=== PATIENT | female | born 1980 | race Two or more races ===

== ENCOUNTER → 2020-02-29 11:19 | Outpatient (BNVA) | payer MEDICAID, SELFPAY | PROVIDERS: Visit Provider Internal Medicine Gastroenterology | DX: K21.00 Gastro-esophageal reflux disease with esophagitis, without bleeding (principal); K59.09 Other constipation; D50.0 Iron deficiency anemia secondary to blood loss (chronic); N92.0 Excessive and frequent menstruation with regular cycle; E66.9 Obesity, unspecified; E53.8 Deficiency of other specified B group vitamins; Z79.899 Other long term (current) drug therapy | CPT/HCPCS: 99213 ==

== ENCOUNTER 2020-06-17 11:02 | Outpatient (REF) | payer MEDICAID, SELFPAY ==
--- NOTE | 2020-06-17 | MM_ITS ---
EXAMINATION: MM SCREENING DIGITAL BREAST TOMOSYNTHESIS, BILATERAL CLINICAL INFORMATION: Screening. Asymptomatic. No prior breast imaging. Age 39. No known family history breast cancer. The lifetime risk of breast cancer based on the Tyrer-Cuzick Model is 4%. COMPARISON: None (current study represents initial baseline exam). TECHNIQUE: Digital breast tomosynthesis is performed in both the craniocaudal and mediolateral oblique views along with computer-aided detection (CAD). Synthesized 2D images are generated from the tomosynthesis. FINDINGS: There are scattered areas of fibroglandular density (ACR BI-RADS breast composition Category b). There are no significant masses, abnormal calcifications, or other abnormalities. The axilla and skin contours are unremarkable. MM/MM tomosynthesis screening BI IMPRESSION: No mammographic evidence of malignancy. ASSESSMENT: BI-RADS 1: Negative RECOMMENDATION: Routine annual mammography screening. This patient's information was entered into a reminder system with a target due date for their next mammogram.
== END 2020-06-17 11:03 | disposition home or self-care (01) ==
LOC: HO.MAMMO 11:02
PROVIDERS: PCP Family Medicine; Visit Provider Family Medicine
DX: Z12.31 Encounter for screening mammogram for malignant neoplasm of breast (principal)
CPT/HCPCS: 77063; 77067

== ENCOUNTER → 2020-08-29 10:25 | Outpatient (BNVA) | payer MEDICAID, SELFPAY | PROVIDERS: PCP Family Medicine; Visit Provider Internal Medicine Gastroenterology ==

== ENCOUNTER 2021-03-08 08:06 | Outpatient (REF) | payer MEDICAID, SELFPAY ==
[2021-03-08 08:18] LABS: MANUAL DIFF FLAG NO
[2021-03-08 08:25] LABS: Basophils Percent Auto 0.7 % (0-2); Eosinophils Percent Auto 0.5 % (0-4); Hematocrit 35.5 % (37-47); Hemoglobin 11.6 g/dl (12.0-16.0); Imm Gran Abs Auto 0.01 X10*3/uL (0.00-0.03); Imm Gran Pct Auto 0.2 % (0.0-0.4); Lymphocytes Absolute Auto 1.9 X10*3/uL (1.2-4.9); Lymphocytes Percent Auto 32.3 % (20-40); Mean Corpuscular HGB Conc 32.7 g/dl (31.0-35.0); Mean Corpuscular Hemoglobin 29.7 pg (27.0-33.0); Mean Corpuscular Volume 90.8 fL (80-98); Mean Platelet Volume 9.8 fL (9.4-12.3); Monocytes Absolute Auto 0.4 X10*3/uL (0.1-1.2); Monocytes Percent Auto 7.4 % (2-11); Neutrophils Absolute Auto 3.5 X10*3/uL (2.0-8.3); Neutrophils Percent Auto 58.9 % (45-73); Platelet Count 330 X10*3/uL (160-400); Red Blood Count 3.91 X10*6/uL (4.20-5.50); White Blood Count 5.9 X10*3/uL (4.8-10.8)
[2021-03-08 09:38] LABS: Ferritin 10 ng/mL (10-250)
[2021-03-10 04:50] LABS: Folate 15.6 ng/mL (> or = 4.0); Vitamin B12 185 pg/mL (200-900)
== END 2021-03-08 08:07 | disposition home or self-care (01) ==
LOC: HO.LAB 08:06
PROVIDERS: PCP Nurse Practitioner; Visit Provider Internal Medicine Gastroenterology
DX: D50.0 Iron deficiency anemia secondary to blood loss (chronic) (principal); K21.00 Gastro-esophageal reflux disease with esophagitis, without bleeding
CPT/HCPCS: 36415; 82607; 82728; 82746; 85025

== ENCOUNTER → 2021-03-13 10:59 | Outpatient (BNVA) | payer MEDICAID, SELFPAY | PROVIDERS: Referring Provider Nurse Practitioner; Visit Provider Internal Medicine Gastroenterology | DX: Z13.89 Encounter for screening for other disorder (principal) | CPT/HCPCS: 99212 ==

== ENCOUNTER 2021-04-18 08:26 | Outpatient (REF) | payer MEDICAID, SELFPAY ==
[2021-04-18 08:52] LABS: COVID-19 Test Positive (Negative)
== END 2021-04-18 08:27 | disposition home or self-care (01) ==
LOC: HO.LAB 08:26
PROVIDERS: PCP Nurse Practitioner; Visit Provider Internal Medicine
DX: Z20.822 Contact with and (suspected) exposure to COVID-19 (principal)
CPT/HCPCS: 36415; 87635; C9803

== ENCOUNTER → 2021-05-26 07:44 | Outpatient (REF) | payer MEDICAID, SELFPAY ==
--- NOTE | ~2021-05-26 | NM_ITS ---
EXAMINATION: NM RADIONUCLIDE SOLID FOOD GASTRIC EMPTYING 4-HOUR STUDY CLINICAL INFORMATION: Nausea, vomiting and bloating. COMPARISON: None. TECHNIQUE: A standard meal consisting of 4 oz of Egg Beaters brand tagged with 0.89 microcuries Tc-99m Sulfur Colloid, 8 oz water and 2 slices of toast with jelly was administered orally to the patient. Images were obtained using a dual head gamma camera in the anterior and posterior projections over of the stomach immediately post ingestion and at hourly intervals up to 4 hours post ingestion. The anterior and posterior counts at each time interval were averaged using the geometric mean and expressed as percentage of the immediate post ingestion counts. FINDINGS: There is good visualization of activity in the stomach immediately post ingestion. As the study progresses, there is good clearance of activity from the stomach and visualization of progressively increasing small bowel activity. By the end of the study, there is almost no retention noted in the stomach. Retention in the stomach at each time interval was: 1 hour 88% (normal 37%-90%) 2 hours 51% (normal 30%-60%) 3 hours 10% 4 hours 3% (normal 0%-10%) NM/NE gastric emptying study IMPRESSION: Normal 4-hour solid food gastric emptying study.
== END ==
LOC: HO.NUCMED 07:44
PROVIDERS: Visit Provider Internal Medicine Gastroenterology
DX: R10.9 Unspecified abdominal pain (principal); R11.0 Nausea
CPT/HCPCS: 78264; A9541

== ENCOUNTER → 2021-06-19 10:46 | Outpatient (BNVA) | payer MEDICAID, SELFPAY | PROVIDERS: Referring Provider Nurse Practitioner; Visit Provider Internal Medicine Gastroenterology | DX: Z13.89 Encounter for screening for other disorder (principal) | CPT/HCPCS: 99212 ==

== ENCOUNTER 2021-07-14 09:03 | Outpatient (REF) | payer MEDICAID, SELFPAY ==
[2021-07-14 09:51] LABS: Hematocrit 36.4 % (37.0-47.0); Hemoglobin 11.7 g/dl (12.0-16.0); Mean Corpuscular HGB Conc 32.1 g/dl (31.0-35.0); Mean Corpuscular Hemoglobin 30.3 pg (27.0-33.0); Mean Corpuscular Volume 94.3 fL (80.0-98.0); Mean Platelet Volume 9.8 fL (9.4-12.3); Platelet Count 316 X10*3/uL (160-400); Red Blood Count 3.86 X10*6/uL (4.20-5.50); Red Cell Distribution Width 13.6 % (11.0-16.0); White Blood Count 4.9 X10*3/uL (4.8-10.8)
[2021-07-14 10:38] LABS: Ferritin 12 ng/mL (10-250)
[2021-07-14 10:43] LABS: Vitamin B12 1016 pg/mL (200-900)
[2021-07-15 13:41] LABS: Immunoglobulin A 307 mg/dL (47-310)
[2021-07-15 18:02] LABS: Transglutaminase IgA <1.0 U/mL
== END 2021-07-14 09:04 | disposition home or self-care (01) ==
LOC: HO.LAB 09:03
PROVIDERS: PCP Nurse Practitioner; Visit Provider Internal Medicine Gastroenterology
DX: D50.0 Iron deficiency anemia secondary to blood loss (chronic) (principal); E53.8 Deficiency of other specified B group vitamins
CPT/HCPCS: 36415; 82607; 82728; 82784; 85027; 86364

== ENCOUNTER → 2021-09-25 09:47 | Outpatient (BNVA) | payer MEDICAID, SELFPAY | PROVIDERS: PCP Nurse Practitioner; Referring Provider Nurse Practitioner; Visit Provider Internal Medicine Gastroenterology | DX: K59.09 Other constipation (principal); K21.00 Gastro-esophageal reflux disease with esophagitis, without bleeding; R14.0 Abdominal distension (gaseous); R11.0 Nausea; R10.9 Unspecified abdominal pain; E53.8 Deficiency of other specified B group vitamins; D50.0 Iron deficiency anemia secondary to blood loss (chronic) | CPT/HCPCS: 99212 ==

== ENCOUNTER 2022-01-23 10:25 | Emergency (ER) | payer OTHER, SELFPAY ==
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
[2022-01-23 10:33] VITALS: BP 171/84; PULSE 61; RESP 18; TEMP 36.8; O2SAT 99; BMI 35.8
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
== END 2022-01-23 13:20 | disposition home or self-care (01) ==
PROVIDERS: Emergency Provider Emergency Medicine; PCP Nurse Practitioner
DX: R07.89 Other chest pain (principal); M54.50 Low back pain, unspecified
CPT/HCPCS: 71046; 99283

== ENCOUNTER 2022-03-23 08:04 | Outpatient (REF) | payer MEDICAID, SELFPAY ==
[2022-03-23 08:19] LABS: MANUAL DIFF FLAG NO
[2022-03-23 08:35] LABS: Basophils Absolute Auto 0.1 X10*3/uL (0.0-0.2); Basophils Percent Auto 0.9 % (0-2); Eosinophils Absolute Auto 0.1 X10*3/uL (0.0-0.4); Eosinophils Percent Auto 1.1 % (0-4); Hematocrit 37.3 % (37.0-47.0); Hemoglobin 12.3 g/dl (12.0-16.0); Imm Gran Abs Auto 0.02 X10*3/uL (0.00-0.03); Imm Gran Pct Auto 0.3 % (0.0-0.4); Lymphocytes Absolute Auto 1.8 X10*3/uL (1.2-4.9); Lymphocytes Percent Auto 25.6 % (20-40); Mean Corpuscular Hemoglobin 31.4 pg (27.0-33.0); Mean Corpuscular Volume 95.2 fL (80.0-98.0); Mean Platelet Volume 9.4 fL (9.4-12.3); Monocytes Absolute Auto 0.5 X10*3/uL (0.1-1.2); Monocytes Percent Auto 6.9 % (2-11); Neutrophils Absolute Auto 4.6 x10*3/uL (2.0-8.3); Neutrophils Percent Auto 65.2 % (45-73); Platelet Count 304 X10*3/uL (160-400); Red Blood Count 3.92 X10*6/uL (4.20-5.50); Red Cell Distribution Width 12.2 % (11.0-16.0)
[2022-03-23 09:23] LABS: Ferritin 14 ng/mL (10-250); Vitamin D 25-OH Total 43.6 ng/mL (>30)
== END 2022-03-23 08:05 | disposition home or self-care (01) ==
LOC: HO.LAB 08:04
PROVIDERS: PCP Physician Assistant; Visit Provider Internal Medicine Gastroenterology
DX: D50.0 Iron deficiency anemia secondary to blood loss (chronic) (principal)
CPT/HCPCS: 36415; 82306; 82728; 85025

== ENCOUNTER → 2022-03-26 09:47 | Outpatient (BNVA) | payer MEDICAID, SELFPAY | PROVIDERS: PCP Physician Assistant; Visit Provider Internal Medicine Gastroenterology | DX: K21.00 Gastro-esophageal reflux disease with esophagitis, without bleeding (principal); D50.0 Iron deficiency anemia secondary to blood loss (chronic); K59.09 Other constipation; R11.0 Nausea; R14.0 Abdominal distension (gaseous); R10.9 Unspecified abdominal pain; E53.8 Deficiency of other specified B group vitamins | CPT/HCPCS: 99212 ==

== ENCOUNTER 2022-09-09 07:14 | Outpatient (REF) | payer MEDICAID, SELFPAY ==
[2022-09-09 08:07] LABS: Hematocrit 38.9 % (37.0-47.0); Hemoglobin 12.7 g/dl (12.0-16.0); Mean Corpuscular HGB Conc 32.6 g/dl (31.0-35.0); Mean Corpuscular Hemoglobin 31.6 pg (27.0-33.0); Mean Corpuscular Volume 96.8 fL (80.0-98.0); Mean Platelet Volume 9.6 fL (9.4-12.3); Platelet Count 260 X10*3/uL (160-400); Red Blood Count 4.02 X10*6/uL (4.20-5.50); Red Cell Distribution Width 12.5 % (11.0-16.0); White Blood Count 4.8 X10*3/uL (4.8-10.8)
[2022-09-09 08:43] LABS: Alanine Aminotransferase 16 U/L (0-31); Albumin Level 3.9 g/dL (3.5-5.0); Alkaline Phosphatase 65 U/L (39-117); Aspartate Amino Transferase 16 U/L (5-31); Bilirubin Direct 0.1 mg/dL (0.0-0.5); Bilirubin Total 0.3 mg/dL (0.0-1.0); Total Protein 6.8 g/dL (6.5-8.0)
[2022-09-09 09:00] LABS: Ferritin 35 ng/mL (10-250)
== END 2022-09-09 07:15 | disposition home or self-care (01) ==
LOC: HO.LAB 07:14
PROVIDERS: PCP Registered Nurse; Visit Provider Internal Medicine Gastroenterology
DX: D50.0 Iron deficiency anemia secondary to blood loss (chronic) (principal); K21.00 Gastro-esophageal reflux disease with esophagitis, without bleeding
CPT/HCPCS: 36415; 80076; 82728; 85027

== ENCOUNTER 2023-02-27 09:41 | Outpatient (REF) | payer MEDICAID, SELFPAY ==
[2023-03-03 17:03] LABS: VITAMIN D (1,25 OH) D3 33 pg/mL; Vit D (1,25-Dihydroxy) Total 33 pg/mL (18-72); Vitamin D (1,25 OH) D2 <8 pg/mL
== END 2023-02-27 09:42 | disposition home or self-care (01) ==
LOC: HO.LAB 09:41
PROVIDERS: PCP Student in an Organized Health Care Education/Training Program; Visit Provider Student in an Organized Health Care Education/Training Program
DX: Z00.00 Encounter for general adult medical examination without abnormal findings (principal); Z11.3 Encounter for screening for infections with a predominantly sexual mode of transmission
CPT/HCPCS: 0353U; 80053; 80061; 82607; 82652; 82746; 83036; 84443; 85025; 86704; 86707; 86780; 86803; 87340; 87389

== ENCOUNTER 2023-04-16 10:29 | Outpatient (REF) | payer MEDICAID, SELFPAY | END 2023-04-16 10:30 | disposition home or self-care (01) | LOC: HO.MAMMO 10:29 | PROVIDERS: PCP Student in an Organized Health Care Education/Training Program; Visit Provider Family Medicine | DX: Z12.31 Encounter for screening mammogram for malignant neoplasm of breast (principal) | CPT/HCPCS: 77063; 77067 ==

== ENCOUNTER → 2023-04-16 10:45 | Outpatient (BNV) | payer MEDICAID, SELFPAY | PROVIDERS: PCP Student in an Organized Health Care Education/Training Program; Visit Provider Radiology Diagnostic Radiology | DX: Z12.31 Encounter for screening mammogram for malignant neoplasm of breast (principal) | CPT/HCPCS: 77063; 77067 ==

== ENCOUNTER 2023-04-22 10:45 | Outpatient (AMB) | payer MEDICAID, SELFPAY ==
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
[2023-04-22 11:07] VITALS: BP 135/87; RESP 73; BMI 38.8
== END 2023-04-22 11:29 | disposition home or self-care (01) ==
PROVIDERS: Visit Provider Internal Medicine Gastroenterology
DX: R14.0 Abdominal distension (gaseous) (principal); R11.0 Nausea; R10.9 Unspecified abdominal pain; E53.8 Deficiency of other specified B group vitamins; D50.0 Iron deficiency anemia secondary to blood loss (chronic); K59.09 Other constipation; K21.00 Gastro-esophageal reflux disease with esophagitis, without bleeding
CPT/HCPCS: 99213

== ENCOUNTER → 2023-04-22 10:45 | Outpatient (BNVA) | payer MEDICAID, SELFPAY | PROVIDERS: Visit Provider Internal Medicine Gastroenterology | DX: K59.09 Other constipation (principal); K21.00 Gastro-esophageal reflux disease with esophagitis, without bleeding; D50.0 Iron deficiency anemia secondary to blood loss (chronic); E53.8 Deficiency of other specified B group vitamins; R14.0 Abdominal distension (gaseous); R11.0 Nausea; R10.9 Unspecified abdominal pain | CPT/HCPCS: 99212 ==

== ENCOUNTER 2023-07-03 08:39 | Outpatient (REF) | payer MEDICAID, SELFPAY ==
[2023-07-03 10:30] LABS: Alanine Aminotransferase 8 U/L (0-31); Albumin Level 3.5 g/dL (3.5-5.0); Alkaline Phosphatase 73 U/L (39-117); Anion Gap 13 (12-20); Aspartate Amino Transferase 12 U/L (5-31); Bilirubin Total 0.4 mg/dL (0.0-1.0); Blood Urea Nitrogen 8 mg/dL (9-16); Calcium 9.2 mg/dL (8.4-10.2); Carbon Dioxide 26 mmol/L (22-29); Chloride 103 mmol/L (96-108); Cholesterol 196 mg/dL (<200); Estimated Glomerular Filt Rate > 60; Glucose Random 81 mg/dL (60-115); HDL Cholesterol 40 mg/dL (>40); LDL Cholesterol Calculated 140 mg/dL (<100); Potassium 3.4 mmol/L (3.3-5.1); Sodium 139 mmol/L (135-145); Total Protein 7.1 g/dL (6.5-8.0); Triglycerides 83 mg/dL (<150)
[2023-07-03 10:53] LABS: HBS Num1 126.01 mIU/mL (0-7.99); HBc Num1 0.06 S/CO (0.00-0.79); HBsAGNum1 0.29 S/CO (0.00-0.99); Hepatitis B Core Antibody Nonreactive (Nonreactive); Hepatitis B Surface Antigen Negative (Negative); ~Hepatitis B Surface Antibody REACTIVE (Nonreactive)
[2023-07-03 11:05] LABS: Vitamin B12 433 pg/mL (200-900)
== END 2023-07-03 08:40 | disposition home or self-care (01) ==
LOC: HO.LAB 08:39
PROVIDERS: PCP Student in an Organized Health Care Education/Training Program; Visit Provider Student in an Organized Health Care Education/Training Program
DX: Z00.00 Encounter for general adult medical examination without abnormal findings (principal); I10 Essential (primary) hypertension; E53.8 Deficiency of other specified B group vitamins; E78.5 Hyperlipidemia, unspecified
CPT/HCPCS: 36415; 80053; 80061; 82607; 86704; 86706; 87340

== ENCOUNTER 2024-04-21 07:29 | Outpatient (REF) | payer MEDICAID, SELFPAY ==
[2024-04-21 08:50] LABS: Hematocrit 36.9 % (37.0-47.0); Hemoglobin 12.3 g/dl (12.0-16.0); Mean Corpuscular HGB Conc 33.3 g/dl (31.0-35.0); Mean Corpuscular Hemoglobin 31.7 pg (27.0-33.0); Mean Corpuscular Volume 95.1 fL (80.0-98.0); Mean Platelet Volume 10.4 fL (9.4-12.3); Platelet Count 250 X10*3/uL (160-400); Red Blood Count 3.88 X10*6/uL (4.20-5.50); White Blood Count 6.4 X10*3/uL (4.8-10.8)
[2024-04-21 09:00] LABS: Estimated Average Glucose 94 mg/dL; Hemoglobin A1C 93.6157 umol/L; Hemoglobin A1c % 4.9 % (<6.0); Total Hemoglobin (HGBA1C) 3137.4089 umol/L
[2024-04-21 09:43] LABS: Alanine Aminotransferase 10 U/L (0-31); Albumin Level 3.8 g/dL (3.5-5.0); Alkaline Phosphatase 72 U/L (39-117); Anion Gap 12 (12-20); Aspartate Amino Transferase 17 U/L (5-31); Bilirubin Total 0.4 mg/dL (0.0-1.0); Blood Urea Nitrogen 13 mg/dL (9-16); Calcium 8.8 mg/dL (8.4-10.2); Carbon Dioxide 25 mmol/L (22-29); Chloride 108 mmol/L (96-108); Cholesterol 197 mg/dL (<200); Estimated Glomerular Filt Rate > 60; Glucose Random 81 mg/dL (60-115); HDL Cholesterol 44 mg/dL (>40); LDL Cholesterol Calculated 137 mg/dL (<100); Potassium 3.6 mmol/L (3.3-5.1); Sodium 141 mmol/L (135-145); Total Protein 7.1 g/dL (6.5-8.0); Triglycerides 84 mg/dL (<150)
[2024-04-21 09:48] LABS: Creatinine Urine 267.01 mg/dL; Microalbum/Creatinine Ratio Ur 4.4 ug/mg cr (<30)
[2024-04-21 10:00] LABS: TSH reflex Free T4 1.97 uIU/mL (0.32-4.0)
[2024-04-21 10:07] LABS: Vitamin B12 337 pg/mL (200-900)
[2024-04-21 10:57] LABS: HBS Num1 155.26 mIU/mL (0-7.99); HBc Num1 0.06 S/CO (0.00-0.79); HBsAGNum1 0.46 S/CO (0.00-0.99); HIV AB/AG Nonreactive (Nonreactive); HIV Num 1 0.06 S/CO (0.00-0.99); Hepatitis B Core Antibody Nonreactive (Nonreactive); Hepatitis B Surface Antigen Negative (Negative); ~Hepatitis B Surface Antibody REACTIVE (Nonreactive); ~Hepatitis C Antibody Nonreactive (Nonreactive)
[2024-04-21 10:58] LABS: Syphilis Screen Nonreactive (Nonreactive)
[2024-04-21 12:37] LABS: CT PCR NOT DETECTED (Not Detect.); NG PCR NOT DETECTED (Not Detect.)
== END 2024-04-21 07:30 | disposition home or self-care (01) ==
LOC: HO.LAB 07:29
PROVIDERS: PCP Student in an Organized Health Care Education/Training Program; Visit Provider Student in an Organized Health Care Education/Training Program
DX: Z00.00 Encounter for general adult medical examination without abnormal findings (principal)
CPT/HCPCS: 80053; 80061; 82043; 82570; 82607; 82746; 83036; 84443; 85027; 86704; 86706; 86780; 86803; 87340; 87389; 87491; 87591

== ENCOUNTER 2024-05-09 10:53 | Outpatient (REF) | payer MEDICAID, SELFPAY | END 2024-05-09 10:54 | disposition home or self-care (01) | LOC: HO.MAMMO 10:53 | PROVIDERS: PCP Student in an Organized Health Care Education/Training Program; Visit Provider Student in an Organized Health Care Education/Training Program | DX: Z12.31 Encounter for screening mammogram for malignant neoplasm of breast (principal) | CPT/HCPCS: 77063; 77067 ==

== ENCOUNTER → 2024-05-09 11:15 | Outpatient (BNV) | payer MEDICAID, SELFPAY | PROVIDERS: PCP Student in an Organized Health Care Education/Training Program; Visit Provider Internal Medicine | DX: Z12.31 Encounter for screening mammogram for malignant neoplasm of breast (principal) | CPT/HCPCS: 77063; 77067 ==

== ENCOUNTER 2024-05-29 09:24 | Outpatient (REF) | payer MEDICAID, SELFPAY ==
[2024-05-29 10:55] LABS: Alanine Aminotransferase 15 U/L (0-31); Albumin Level 3.7 g/dL (3.5-5.0); Alkaline Phosphatase 96 U/L (39-117); Anion Gap 9 (12-20); Aspartate Amino Transferase 19 U/L (5-31); Bilirubin Total 0.4 mg/dL (0.0-1.0); Blood Urea Nitrogen 9 mg/dL (9-16); Carbon Dioxide 28 mmol/L (22-29); Chloride 109 mmol/L (96-108); Estimated Glomerular Filt Rate > 60; Glucose Random 82 mg/dL (60-115); Potassium 3.7 mmol/L (3.3-5.1); Sodium 142 mmol/L (135-145); Total Protein 7.1 g/dL (6.5-8.0)
== END 2024-05-29 09:25 | disposition home or self-care (01) ==
LOC: HO.LAB 09:24
PROVIDERS: PCP Student in an Organized Health Care Education/Training Program; Visit Provider Student in an Organized Health Care Education/Training Program
DX: I10 Essential (primary) hypertension (principal)
CPT/HCPCS: 36415; 80053

== ENCOUNTER 2024-11-08 09:40 | Outpatient (AMB) | payer MEDICAID, SELFPAY ==
--- NOTE | 2024-11-08 09:42 | A.OFFVIS_ITS ---
Vital Signs 11/08/24 09:45 Height 5 ft 2 in Weight 217 lb BMI 39.7 BP 141/66 H Blood Pressure Location Lt brachial Position Sitting Pulse 71 Pulse Oximetry (%) 100 Oxygen Delivery Method Room Air Intake Visit Reasons: abdominal bloating Intake Note: Patient follow up for Abdominal bloating, david was 04/22/2023. Patient denies any GI issues. 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 Accompanied by: Self / Same As Patient Allergies No Known Allergies Allergy (Verified 11/08/24 09:42) Medication List - Last Reconciled 11/08/24 by Alexis Lowe MD cholecalciferol (vitamin D3) 50 mcg PO DAILY dicyclomine 20 mg PO BID PRN 90 days famotidine 20 mg PO Q12H 90 days losartan 25 mg PO DAILY psyllium 1 tbsp PO DAILY 90 days sennosides (senna) 8.6 mg PO BEDTIME 90 days simethicone (Gas Relief (simethicone)) 80 mg PO TID-QID PRN verapamil ER 240 mg PO DAILY HPI HPI abdominal bloating: Details: GI Clinic visit for this 44-year-old female for FU of GERD, iron and vitamin B12 deficiency and chronic constipation. ? CHRONIC ILLNESSES:?GERD, Constipation, Fe anemia- heavy menses (stable), EGD 11/2017 ? ? TODAY'S VISIT Patient follow up for Abdominal bloating, david was 04/22/2023. My stomach is good - not like before Had some constipation last week - going twice a day this week. Denies black stools or rectal bleeding. Denies FH of colon polyps or colon cancer. Pt advised to schedule a colonoscopy for colon cancer screening - she would like to schedule during her summer vacation. PAST VISITS: Lab results reviewed - anemia has resolved Patient here for FU of abdominal bloating and lab results. Patient cc: GERD in the morning. Denies any other GI issues. Acid reflux is getting better. Notes symptoms only in the am and ok the rest of the day Notes heartburn and acid regurgitation when she wakes. Has dinner at 4:30 pm and sleeps at 10;30 pm. Having a BM daily PAST VISIT: Gas is not too much of a problem Noted constipation 2 weeks ago. Took prunes and had multiple BMs since she was backed up. Complains of gas and heartburn. Menstruation lasts 4 days. Takes Senna prn for constipation and dicyclomine for abdominal pain. She, her and son had COVID in 03/2021 Notes heartburn and abdominal pain since she had the COVID vaccine in January. Notes noise in her throat and belly. Has to use the rest room 2-3 times in the am. Stools can be soft to watery without blood or mucous. Notes some heartburn and abdominal discomfort. Lab results reviewed mild anemia and low vitamin B12. Works out on the Treadmill 20 min daily LABS IN [facility]:?12/28/18 H&H of 11.7 and 36 (stable since July 2017), normal LFTs and lipase, vitamin 07/12 B12 204 IMAGING STUDIES:?May 2021 GASTRIC EMPTYING STUDY SHOWED: 1 hour 88% (normal 37%-90%) 2 hours 51% (normal 30%-60%) 3 hours 10% 4 hours 3% (normal 0%-10%)IMPRESSION: Normal 4-hour solid food gastric emptying study. 01/02/19 Abd US was normal ENDOSCOPIC STUDIES:? 12/14/17? EGD SHOWED: ESOPHAGUS: Grade 1 esophagitis STOMACH: Gastric polyps and gastritis DUODENUM: Normal No source found for abdominal pain Plan: Above findings were discussed with Valentine and she was advised to keep her FU appt in GI. BIOPSIES SHOWED: ? A. ? SMALL BOWEL, BIOPSIES:? FRAGMENTS OF UNREMARKABLE SMALL INTESTINAL MUCOSA.? THERE IS NO EVIDENCE OF CELIAC DISEASE OR SPRUE SEEN. B. ? GASTRIC, BIOPSIES:? FRAGMENTS OF ANTRAL AND FUNDIC TYPE GASTRIC MUCOSA WITH CHEMICAL/IRRITATIONAL ?GASTRITIS.? THE HELICOBACTER PYLORI IMMUNOHISTOCHEMICAL STATIN IS NEGATIVE. ?C. ? GASTRIC, POLYP, BIOPSIES:? FRAGMENTS OF FUNDIC GLAND POLYP. [facility] Medical History (System 06/10/23 @ 11:15 by Kasia Austin) Obesity (BMI 35.0-39.9 without comorbidity) Iron deficiency anemia due to chronic blood loss Chronic constipation GERD with esophagitis Surgical History History of esophagogastroduodenoscopy (EGD) (~11/2017) Family History Paternal Grandmother Stomach cancer Social History Household Members: Spouse and Children Alcohol intake: never Review of Systems Const Denies fever(s), Reports headache(s) and Reports weight loss (1 lbs) Eyes Denies eye discharge and Denies irritation ENT Reports Normal hearing present, Denies dysphagia, Denies dizziness and Reports headache(s) Card Denies chest pain, Denies leg edema and Denies dyspnea on exertion Resp Denies cough, Denies dyspnea on exertion and Denies wheezing GI Denies abdominal pain, Denies change in bowel habits, Reports constipation (Intermittent), Denies dysphagia and Denies heartburn Denies difficulty voiding, Denies dysuria and Reports other (LMP 10/14/2024) Musc Denies back pain and Reports arthralgias Skin/Breast Denies pruritus, Denies rash and Denies jaundice Neuro Reports Normal hearing present, Denies Abnormal speech present, Denies dizziness, Reports headache(s) and Denies seizure-like activity Psych Denies anxiety, Denies depression and Denies panic attacks Endo Denies cold intolerance, Denies flushing and Denies heat intolerance Sunil/Lymph Denies easy bleeding and Denies easy bruising Aller/Immun Denies wheezing Physical Exam Vital Signs: Last Vital Signs Pulse 71 11/08/24 09:45 BP 141/66 H 11/08/24 09:45 Pulse Ox 100 11/08/24 09:45 Oxygen Delivery Method Room Air 11/08/24 09:45 BMI result Body Mass Index 39.7 Const General: healthy appearing and no acute distress Nutritional Appearance: obese Orientation/consciousness: patient oriented x3 Limitations: no limitations HEENT Head: Yes normal to inspection Ears: hearing grossly normal bilaterally Eyes Sclerae: sclerae normal Pupils: Equal, round and reactive pupils present Neck Neck: Yes normal visual inspection Chest Chest palpation & inspection: normal inspection of the chest Resp Effort & Inspection: normal respiratory effort Auscultation: clear to auscultation bilaterally Cardio Palpation: normal PMI Rate: regular rate Rhythm: regular rhythm Heart sounds: S1 normal heart sound present, S2 normal heart sound present and no murmurs GI Palpation (GI): Soft to palpation, nontender and No hepatosplenomegaly present Auscultation: normal bowel sounds Rectal Exam - Female: deferred Skin General skin exam: no rashes or lesions noted Neuro General: patient oriented x3, gait normal and moves all extremities Cranial nerves: Yes Equal, round and reactive pupils present and Yes Normal hearing present Speech: No Abnormal speech present Psych Appearance: grossly normal Mental Status: mental status grossly normal Assessment & Plan Assessment & Plan (1) GERD with esophagitis: Comment: continue omeprazole 20 mg twice daily. Code(s): K21.00 - Gastro-esophageal reflux disease with esophagitis, without bleeding Category: Medical (2) Chronic constipation: Comment: Continue Senna twice a week. Code(s): K59.09 - Other constipation Category: Medical (3) Abdominal pain: Code(s): R10.9 - Unspecified abdominal pain Category: Medical (4) Nausea: Code(s): R11.0 - Nausea Category: Medical (5) Abdominal bloating: Code(s): R14.0 - Abdominal distension (gaseous) Category: Medical Plan 44 YF with GERD, Constipation, Fe anemia- heavy menses (stable), Patient complained of right-sided flank pain associated with intake of fried foods suggestive of biliary or pancreatic source of pain. Past abdominal ultrasound in December 2013 was normal.? EGD 11/2017 showed grade 1 esophagitis, gastritis and benign gastric polyps. Gastric emptying study was normal. GERD symptoms are controlled with Omeprazole 20 mg twice daily. Stopped eating fried foods and rt flank pain has resolved. Has a BM almost every day - takes Senna twice a week. Iron deficiency anemia due to chronic blood loss - resolved. 11/08/24 patient was advised to schedule a screening colonoscopy. She denies any lower GI symptoms. Colonoscopy procedure, prep instructions and potential complications including bleeding, perforation and reaction to anesthetics were reviewed with the. Patient was advised to schedule a follow-up appointment in 4 months Medications: New bisacodyl (Dulcolax (bisacodyl)) Take 4 tablets at 12 pm the day before colonoscopy appointment 20 mg (4 x 5 mg) PO ONCE 4 tabs 0RF colon prep 1 day polyethylene glycol 3350 (Miralax) Mix Miralax with 64 oz(8 cups) of Crystal light. Take 2 tablets of Dulcolax qt 12 pm. Wait to have your 1st bowel movement, then begin drinking Miralax. Drink a glass of Miralax every 10-15 minutes until you are finished. You will drink at least another 4 cups of clear liquid of your choice over the next 2 hours. Please drink as many clear liquids as possible You may have clear liquids up to four hours before your procedure 17 grams PO DAILY 238 grams 0RF colon prep 1 day Coding Level of Care Code Est Pt Level 4 (58291) Diagnoses GERD with esophagitis K21.00 Chronic constipation K59.09 Abdominal pain R10.9 Nausea R11.0 Abdominal bloating R14.0 Time Spent (min) 23
[2024-11-08 09:45] VITALS: BP 141/66; PULSE 71; O2SAT 100; BMI 39.7
--- OUTSIDE RECORDS SUMMARY | 2024-11-08 10:39 | XMS_ITS | Clinical Summary ---
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 11/25/19 23 Active famotidine (Pepcid) 20 MG tablet Take 20 mg by mouth every 12 (twelve) hours. 11/25/19 23 Active ibuprofen 600 MG tabletIndicat ions:Pain TAKE 1 TABLET BY MOUTH THREE TIMES A DAY WITH FOOD NEEDED FOR PAIN 30 tablet 03/02/20 23 Active verapamil SR (Calan SR) 240 MG ER tablet Take 240 mg by mouth at bedtime. Do not crush or chew. Active psyllium (Metamucil Smooth Texture) 58.6 % powder Take 5.12 g (3 g of fiber) by mouth 2 times daily. 283 g 2 12/10/19 24 025 Active docusate sodium (Colace) 100 MG capsule Take 1 tab po bid prn constipation 60 capsule 3 12/10/19 24 Active cetirizine (ZyrTEC) 10 MG tablet Take 1 tablet (10 mg) by mouth Once per day. 90 tablet 04/28/20 24 025 Active Magnesium Extra Strength 400 MG capsule TAKE 1 CAPSULE BY MOUTH EVERY DAY IN THE MORNING 90 capsule 05/15/20 24 Active cholecalcifer ol VITAMIN D (Vitamin D-3) 50 MCG (1999) capsule TAKE 1 CAPSULE (50 MCG) BY MOUTH IN THE MORNING 90 capsule 10/06/19 25 Active buPROPion SR (Wellbutrin SR) 100 MG 12 hr tablet Take 1 tablet (100 mg) by mouth 2 times daily. Do not crush, chew, or split. 60 tablet 2 10/20/19 25 026 Active losartan (Cozaar) 25 MG tablet TAKE 1 TABLET BY MOUTH EVERY DAY 90 tablet 10/24/19 25 Active losartan (Cozaar) 25 MG tablet TAKE 1 TABLET BY MOUTH EVERY DAY 90 tablet 07/25/19 25 025 Discontinued naltrexone-bu PROPion ER (Contrave) 8-90 MG ER tablet Take 1 tablet by mouth Once per day. 120 tablet 1 10/19/19 25 025 Discontinued(O ther) Active Problems Problem Noted Date Diagnosed Date Dental calculus 12/28/2023 Dental caries 12/28/2023 Gingival bleeding 12/28/2023 Constipation 12/10/2023 Hypertension 03/10/2023 Hyperlipidemia 03/10/2023 Health care maintenance 02/05/2023 Obesity 02/05/2023 Gastroesophageal reflux disease 10/11/2021 Cobalamin deficiency 08/09/2017 Migraine 01/30/2013 Resolved Problems Problem Noted Date Diagnosed Date Resolved Date Elevated blood-pressure read ing without diagnosis of hypertension 04/18/2021 03/10/2023 Acanthosis nigricans 08/11/2018 023 Borderline high cholesterol 05/26/2016 02/05/2023 Anemia 01/30/2013 03/10/2023 Encounters Date Type Department Care Team Description 10/21/2024 Refill [facility] [address] [place] [phone] Jackie Dent MD 10/19/2024 Orders Only [facility] [address] [place] [phone] Agnes Kan MD 10/18/2024 9:45 AM EDT Office Visit [facility] [address] [place] [address] [phone] Agnes Kna MD Hypertension, unspecified type (Primary Dx); Dietary counseling; Exercise counseling; Hyperlipidemia, unspecified hyperlipidemia type; Class 2 obesity due to excess calories without serious comorbidity with body mass index (BMI) of 39.0 to 39.9 in adult; Health care maintenance 10/18/2024 Travel 10/17/2024 Telephone [facility] [address] [place] [phone] Agnes Kan MD Chart Prep 10/11/2024 Travel 10/10/2024 Patient Outreach [facility] [address] [place], [place] [phone] Agnes Kan MD Pre-visit Planning (SDOH negative, Tobacco screening negative. ) 10/04/2024 Refill [facility] [address], [place] [phone] Jackie Dent MD from Last 3 Months Immunizations Immunization Administration Dates Next Due Hep B, adult 03/15/2007,11/16/2006,10/13/2006 Influenza, IIV3, injectable 04/25/2010 MMR 09/21/2009 TD (adult), 2 Lf tetanus tox oid, preservative free, adsorbed 10/05/2007 Tdap 09/09/2023 Family History Medical History Relation Name Comments HTN Father gastric ca Father's Sister HTN Mother Prostate cancer Paternal Grandfather genital unspecified ca Paternal Grandmother Relation Name Status Comments Father Father's Sister Mother Paternal Grandfather Paternal Grandmother Social History Tobacco Use Types Packs/Day Years Used Date Smoking Tobacco: Never Passive Smoke Exposure: Never Smokeless Tobacco: Never Tobacco Cessation:Counseling Given: Not Answered Alcohol Use Standard Drinks/Week Comments Never 0 (1 standard drink = 0.6 oz pur e alcohol) Depression Answer Date Recorded Patient Health Questionnaire-9 Score 0 03/08/2024 Patient Health Questionnaire-9 Score 0 03/08/2024 Last PHQ-9: Questionnaire Data Not on file 1 Housing Stability Answer Date Recorded What is your housing situation today? I have lula gray 10/22/[address] you li ve. Do you have problems with any of the following? None of the above 10/22/2023 Food Insecurity Answer Date Recorded Within the past 12 months, y ou worried that your food would run out before you got money to buy more: Never True 03/10/2023 Within the past 12 months,th e food you bought just didn't last and you didn't have enough money to get more: Never True Transportation Answer Date Recorded In the past 12 months, has l ack of transportation kept you from medical appts, meetings, work or from getting things needed for daily living? No 03/10/2023 Utilities Answer Date Recorded In the past 12 months, has t he electric, gas, oil or water company threatened to shut off services in your home? No 03/10/2023 Depression Answer Date Recorded Patient Health Questionnaire-2 Score 0 03/08/2024 Internet Access Answer Date Recorded Internet Access Q1 Yes 10/10/2024 Internet Access Q2 Not on file 10/10/2024 Comments Unknown Sex and Gender Information Value Date Recorded Sex Assigned at Female 03/23/2022 10:18 AM EDT Legal Sex Female 10:18 AM EDT Gender Identity Female 03/23/2022 10:18 AM EDT Sexual Orientation Straight 03/23/2022 10 :18 AM EDT Last Filed Vital Signs Vital Sign Reading Time Taken Comments Blood Pressure 132/60 10/18/2024 10:02 AM EDT Pulse 77 10/18/2024 10:02 AM EDT Temperature 35.9 C (96.7 F) 10/18/2024 10:02 AM EDT Respiratory Rate 18 10/18/2024 10:02 AM EDT Oxygen Saturation 96% 10/18/2024 10:02 AM EDT Inhaled Oxygen Concentration - - Weight 99.1 kg (218 lb 6.4 oz) 10/18/2024 10:02 AM EDT Height 157.5 cm (5' 2 ) 10/18/2024 10:02 AM EDT Body Mass Index 39.95 10/18/2024 10:02 AM EDT Plan of Treatment Upcoming Encounters Date Type Department Care Team (Late st Contact Info) Description 12/21/2024 11:15 AM EDT Office Visit [facility] [address] [place] [address] [phone] Agnes Kan MD [address] [place] [address] 03/02/2025 10:00 AM EDT Office Visit [facility] ADULT DENTAL [address] [place] [address] Valentine Weiner [address] [place] [address] Health Maintenance Due Date Last Done Comments CT Colonography 1979 Colonoscopy 1979 Colorectal Cancer Screening 1979 FIT DNA/Cologuard 1979 FIT 1979 FOBT 1980 Sigmoidoscopy 1979 Family Planning (PISQ) 08/15/1994 COVID-19 Vaccine (2023-2 5 season) 2024 01/15/2021, 12/25/2020 Dental Oral Exam 06/30/2024 12/28/2023 Dental Prophylaxis 01/09/2025 07/11/2024, 12/28/2023, 12/28/2023 Influenza Vaccine (Season Ended) 2025 04/25/2010 Depression Screening 03/08/2025 03/08/2024, 03/08/2024 Dental X-Ray: Bitewings 04/20/2025 04/19/20 24, 02/16/2024, 12/28/2023 Alcohol/Substance Use Screening 04/28/2025 04/28/2024 SDOH Screening 10/10/2025 10/10/2024 Disability Screening 10/18/2025 10/18/2024 Tobacco Screening 10/18/2025 10/18/2024 Mammogram 05/09/2026 05/09/2024, 04/16/2023, 06/17/2020 Cervical Cancer Screening 07/17/2026 HPV/Cotest 07/17/2026 07/17/2021 Pap Smear 07/17/2026 07/17/2021 Dental X-Ray: Full Mouth 12/28/2026 12/28/2023 Lipid Panel 04/21/2029 04/21/2024, 07/03/2023, 02/27/2023 Zoster Vaccines (1 of 2) 08/15/2029 DTaP/Tdap/Td Vaccines (2 - T d or Tdap) 09/08/2033 09/09/2023, 10/05/2007 RSV Patients and Patients Aged 60 years or older (1 - 1-dose 75+ series) 08/15/2054 Hepatitis B Vaccines Completed 03/15/2007, 11/16/2006, 10/13/2006 HIV Screening Completed 04/21/2024, 02/27/2023 Hepatitis C Screening Completed 04/21/2024 , 02/27/2023 HIB Vaccines Aged Out No longer eligi ble based on patient's age to complete this topic HPV Vaccines Aged Out No longer eligi ble based on patient's age to complete this topic Hepatitis A Vaccines Aged Out No long er eligible based on patient's age to complete this topic IPV Vaccines Aged Out No longer eligi ble based on patient's age to complete this topic Meningococcal B Vaccine Aged Out No l onger eligible based on patient's age to complete this topic Meningococcal Vaccine Aged Out No gavi chris eligible based on patient's age to complete this topic Pneumococcal Vaccine: Pediatrics (0 to 5 Years) and At-Risk Patients (6 to 49) Years Aged Out No longer eligible b ased on patient's age to complete this topic RSV under 20 months Aged Out No longe r eligible based on patient's age to complete this topic Rotavirus Vaccines Aged Out No longer eligible based on patient's age to complete this topic Procedures Procedure Name Priority Date/Time Associated Diagnosis Comments PROPHYLAXIS - ADULT Routine 07/11/2024 8 :00 AM EST Dental plaque BI MAMMOGRAM SCREENING TOMOSYNTHESIS BILATERAL Routine 05/09/2024 11:00 AM EST HEPATITIS C AB W/REFL TO HCV RNA, QN, PCR Routine 04/21/2024 7:53 AM EST Annual physical exam HIV 1/2 ANTIGEN/ANTIBODY, FOURTH GENERATION W/RFL Routine 04/21/2024 7:53 AM EST Annual physical exam LIPID PANEL, STANDARD Routine 04/21/2024 7:53 AM EST Annual physical exam BITEWING - SINGLE RADIOGRAPHIC IMAGE Routine 04/19/2024 11:00 AM EST Full coverage crown needed for root canal-treated tooth INTRAORAL - COMPLETE SERIES OF RADIOGRAPHIC IMAGES Routine 12/28/2023 10:00 AM EDT Dental calculus Dental caries Gingival bleeding THINPREP IMAGING PAP AND HPV MRNA E6/E7, WITH CT/NG, TRICHOMONAS Routine 07/17/2021 12:00 AM EST from Last 3 Months or Most Recently Relevant to Health Maintenance Results * BI Mammogram Screening Tomosynthesis Bilateral (05/09/2024 11:00 AM EST) Anatomical Region Laterality Modality Breast Bilateral Mammography 05/09/2024 11:0 0 AM EST Narrative 05/19/2024 3:07 PM EST [facility] [address] [place] [address] Mammography Report Signed Patient: Valentine Victoria MR#: [id number] : 1980 Acct:[id number] Age/Sex: 43 / F ADM Date: 05/09/24 Loc: [facility] Attending Dr: Agnes Maldonado MD Ordering Physician: Agnes Kan MD Re sults: 1Negative Date of Service: 05/09/24 Follow Up: 1 Year From Orig ina Mammogram Procedure(s): MM tomosynthesis screening BI Accession Number(s): [id number] cc: Agnes Kan MD EXAMINATION: MM SCREENING DIGITAL BREAST TOMOSYNTHESIS, BILATERAL CLINICAL INFORMATION: Screening. Asymptomatic. COMPARISON: Mammography: Comparison is made with available priors TECHNIQUE: Digital breast mammography with tomosynthesis is performed in both the craniocaudal and mediolateral oblique views along with computer-aided detection (CAD). FINDINGS: There are scattered areas of fibroglandular density (ACR BI-RADS breast composition Category b). There are no significant masses, abnormal calcifications, or other abnormalities. MM/MM tomosynthesis screening BI IMPRESSION: No mammographic evidence of malignancy. ASSESSMENT: BI-RADS BI-RADS 1 - Negative RECOMMENDATION: Routine annual mammography screening. 1 year F/U This examination should not preclude the clinical evaluation of a suspicious palpable abnormality. This patient's information was entered into a reminder system with a target due date for their next mammogram. Electronically signed by: Ria Watson DO 05/19/2024 03:04 PM EST Dictated By: Ria Watson DO Signed By: <Electronically signed by Ria Watson DO in OV> 05/19/24 1504 DD/ 1100 TD/TT: 05/09/24 1117 Modern Languages Professor: Procedure Note Donotuseinterpreter, Image - 05/19/[facility] [address] [place], [place] [address] Mammography Report Signed Patient: Valentine VictoriaMR#: [id number] : 1980Acct:[id number] Age/Sex: 43 / FADM Date: 05/09/24 Loc: HO.MAMMO Attending Dr: Agnes Maldonado MD Ordering Physician: Agnes Kan sults: 1Negative Date of Service: 05/09/24Follow Up: 1 Year From Orig inal Mammogram Procedure(s): MM tomosynthesis screening BI Accession Number(s): [id number] cc: Agnes Kan MD EXAMINATION: MM SCREENING DIGITAL BREAST TOMOSYNTHESIS, BILATERAL CLINICAL INFORMATION: Screening. Asymptomatic. COMPARISON: Mammography: Comparison is made with available priors TECHNIQUE: Digital breast mammography with tomosynthesis is performed in both the craniocaudal and mediolateral oblique views along with computer-aided detection (CAD). FINDINGS: There are scattered areas of fibroglandular density (ACR BI-RADS breast composition Category b). There are no significant masses, abnormal calcifications, or other abnormalities. MM/MM tomosynthesis screening BI IMPRESSION: No mammographic evidence of malignancy. ASSESSMENT: BI-RADS BI-RADS 1 - Negative RECOMMENDATION: Routine annual mammography screening. 1 year F/U This examination should not preclude the clinical evaluation of a suspicious palpable abnormality. This patient's information was entered into a reminder system with a target due date for their next mammogram. Electronically signed by: Ria Watson DO 05/19/2024 03:04 PM [facility] Dictated By: Ria Watson DO Signed By: <Electronically signed by Ria Watson DO in OV> 05/19/24 1504 DD/ 1100 TD/TT: 05/09/24 1117 Modern Languages Professor: Agnes Maldonado MD IMG BI PROCEDURES Final Result * Hepatitis C Antibody with Reflex to HCV, RNA, Quantitative, Real-Time PCR (04/21/2024 7:53 AM EST) Hepatitis C Antibody Nonreactive Nonreactive [facility] Comment:Antibodies to HCV no t detected; does not exclude early acuteHCV infection. Blood Venous blood specimen / Unknown 04/21/2024 7:53 AM EST 04/21/2024 7:53 AM EST Agnes Maldonado MD LAB BLOOD ORDERAB LES Final Result [facility] [address] [place] [phone] * HIV-1/2 Antigen and Antibodies, Fourth Generation, with Reflexes (04/21/2024 7:53 AM EST) HIV AB/AG Nonreactive Nonreactive [facility] Comment:HIV-1 p24 Ag and/or HIV-1/HIV-2 Ab not detected.A test result that is nonreactive does not exclude thepossibility of exposure to or infection with HIV-1 and/orHIV-2. Nonreactive results in this assay for individualswith prior exposure to HIV-1 and/or HIV-2 may be due toantigen and antibody levels that are below the limit ofdetection of this assay.The PBJ ConciergeniGVISP 1 HIV Ag/Ab Combo assay result andsupplemental assay results should be interpreted inconjunction with the patient's clinical presentation,history and other laboratory results. If the results areinconsistent with clinical evidence, additional testing issuggested to confirm the result. Blood Venous blood specimen / Unknown 04/21/2024 7:53 AM EST 04/21/2024 7:53 AM EST Agnes Maldonado MD LAB BLOOD ORDERAB LES Final Result Performing Organization Address [facility] Co de Phone Number [facility] [address] [place] [address] [phone] * (ABNORMAL) Lipid Panel, Standard (04/21/2024 7:53 AM EST) Triglycerides 84 <150 mg/dL [facility] Comment:Desirable Triglyceri de: less than 150 mg/dLBorderline High Triglyceride 150-199 mg/dLHigh Triglyceride: 200-499 mg/dLVery High Triglyceride: greater than or equal to 5OO mg/dL Cholesterol 197 <200 mg/dL [facility] Comment:Desirable Cholestero l: less than 200 mg/dLBorderline High Cholesterol: 200-239 mg/dLHigh Cholesterol: greater than 239 mg/dL LDL Cholesterol Calculated 137(H) <100 mg/dL [facility] Comment:Desirable LDL: less than 100 mg/dLNear Optimal/Above Optimal LDL: 110- 129 mg/dLBorderline High LDL: 130-159 mg/dLHigh LDL: 160-189 mg/dLVery High LDL: greater than or equal to 190 mg/dL HDL Cholesterol 44 >40 mg/dL [facility] Comment:Desirable HDL: great er than 40 mg/dL Note: This HDL assay may give artificially low results in patients with liver disease. Blood Venous blood specimen / Unknown 04/21/2024 7:53 AM EST 04/21/2024 7:53 AM EST Agnes Maldonado MD LAB BLOOD ORDERAB LES Final Result Performing Organization Address [facility] Co de Phone Number [facility] [address] [place] [address] [phone] * THINPREP TIS PAP AND HPV mRNA E6/E7, CT/NG, TRICH (07/17/2021 12:00 AM EST) Chlamydia trachomatis RNA, TMA, Urogenital NOT DETECTED NOT DETECTED [facility] Clinical Information: None given [facility] COMMENT SEE COMMENT [facility] Comment: The analytical performance characteristics of this assay, when used to test SurePath(TM) specimens have been determined by [employer]. The modifications have not been cleared or approved by the FDA. This assay has been validated pursuant to the CLIA regulations and is used for clinical purposes. For additional information, please refer to https://[employer]/faq/WSZ437 (This link is being provided for information/ educational purposes only.) COMMENT SEE COMMENT [facility] Comment: EXPLANATORY NOTE: The Pap is a screening test for cervical cancer. It is not a diagnostic test and is subject to false negative and false positive results. It is most reliable when a satisfactory sample, regularly obtained, is submitted with relevant clinical findings and history, and when the Pap result is evaluated along with historic and current clinical information. COMMENT: This Pap test has been evaluated with computer assisted technology. [facility] Warranty Clerk: SEE COMMENT [facility] Comment: YP, CT(ASCP) CT screening location: [place] [address] HPV nRNA E6/E7 Not Detected Not Detected [facility] Comment: Methodology: Clinical Writer-Mediated Amplification This assay detects E6/E7 viral messenger RNA (mRNA) from 14 high-risk HPV types (16,18,31,33,35,39,45,51,52,56,58,59,66,68). The analytical performance characteristics of this assay have been determined by [employer]. The modifications have not been cleared or approved by the FDA. This assay has been validated pursuant to the CLIA regulations and is used for clinical purposes. For additional information, please refer to http://[employer]/faq/KOP708w0 (This link if provided for information/ educational purposes only.) Infection Fungal organisms morphologically consistent with Maryjane spp. [facility] Interpretation/Re sult: Negative for intraepithelial lesion or malignancy. [facility] LMP: NONE GIVEN [facility] Neisseria gonorrhoeae RNA, TMA, Urogenital NOT DETECTED NOT DETECTED [facility] Prev. BX: NONE GIVEN [facility] Prev. PAP: NONE GIVEN [facility] SOURCE: None given [facility] Statement Of Adequacy: SEE COMMENT [facility] Comment: Satisfactory for evaluation. Endocervical/transformation zone component present. Age and/or menstrual status not provided Trichomonas vaginalis, QL, TMA, PAP Vial NOT DETECTED NOT DETECTED [facility] Comment: The analytical performance characteristics of this assay have been determined by [employer]. The modifications have not been cleared or approved by the FDA. This assay has been validated pursuant to the CLIA regulations and is used for clinical purposes. For additional information, please refer to http://education.[employer]/ faq/Trichomonastma (This link is being provided for information/ educational purposes only.) 07/17/2021 us Caryl Everett NP LAB PATHOLOGY ORDERABLES Final Result [facility] [address] from Last 3 Months or Most Recently Relevant to Health Maintenance Insurance [facility] C3 DENTAL-[facility] MEDICAID STAND ADULT Care Teams Power Tool Repair Technician Relationship Specialty Start Date End Date Agnes Kan MD [address] [place] [phone] PCP - General Internal Medicine 01/05/23
== END 2024-11-08 10:31 | disposition home or self-care (01) ==
LOC: HO.HGI 09:40
PROVIDERS: PCP Student in an Organized Health Care Education/Training Program; Visit Provider Internal Medicine Gastroenterology
DX: K21.00 Gastro-esophageal reflux disease with esophagitis, without bleeding (principal); K59.09 Other constipation; R10.9 Unspecified abdominal pain; R11.0 Nausea; R14.0 Abdominal distension (gaseous)
CPT/HCPCS: 99214

== ENCOUNTER → 2024-11-08 09:40 | Outpatient (BNVA) | payer MEDICAID, SELFPAY | PROVIDERS: PCP Student in an Organized Health Care Education/Training Program; Visit Provider Internal Medicine Gastroenterology | DX: K21.00 Gastro-esophageal reflux disease with esophagitis, without bleeding (principal); K59.09 Other constipation; R14.0 Abdominal distension (gaseous); R11.0 Nausea; D50.0 Iron deficiency anemia secondary to blood loss (chronic); E53.8 Deficiency of other specified B group vitamins; R10.9 Unspecified abdominal pain | CPT/HCPCS: 99212 ==

== ENCOUNTER 2024-12-15 09:16 | Day surgery (SDC) | payer MEDICAID, SELFPAY ==
--- OUTSIDE RECORDS SUMMARY | 2024-12-06 15:40 | XMS_ITS | Clinical Summary ---
Author Organization [employer] Address [address] [place] [address] Care Team Providers Care Plant Tender Name Role Phone Agnes Kan MD Primary Care Pro vider Allergies No known active allergies Medications rizatriptan (Maxalt) 5 MG tablet 3 Active dicyclomine (Bentyl) 20 MG tablet Take 20 mg by mouth if needed in the morning and at bedtime. 3 Active famotidine (Pepcid) 20 MG tablet Take 20 mg by mouth every 12 (twelve) hours. 3 Active ibuprofen 600 MG tabletIndicatio ns:Pain TAKE 1 TABLET BY MOUTH THREE TIMES A DAY WITH FOOD NEEDED FOR PAIN 30 tablet 3 Active verapamil SR (Calan SR) 240 MG ER tablet Take 240 mg by mouth at bedtime. Do not crush or chew. Active psyllium (Metamucil Smooth Texture) 58.6 % powder Take 5.12 g (3 g of fiber) by mouth 2 times daily. 283 g 2 4 12/10/19 25 Active docusate sodium (Colace) 100 MG capsule Take 1 tab po bid prn constipation 60 capsule 3 4 Active cetirizine (ZyrTEC) 10 MG tablet Take 1 tablet (10 mg) by mouth Once per day. 90 tablet 4 04/28/20 25 Active Magnesium Extra Strength 400 MG capsule TAKE 1 CAPSULE BY MOUTH EVERY DAY IN THE MORNING 90 capsule 4 Active cholecalciferol VITAMIN D (Vitamin D-3) 50 MCG (1999 UT) capsule TAKE 1 CAPSULE (50 MCG) BY MOUTH IN THE MORNING 90 capsule Active buPROPion SR (Wellbutrin SR) 100 MG 12 hr tablet Take 1 tablet (100 mg) by mouth 2 times daily. Do not crush, chew, or split. 60 tablet 2 5 10/20/19 26 Active losartan (Cozaar) 25 MG tablet TAKE 1 TABLET BY MOUTH EVERY DAY 90 tablet 5 Active Active Problems Problem Noted Date Diagnosed Date [...] Type Department Care Team Description 10/21/2024 Refill [facility] [address] [place] [address] Jackie Dent MD 10/19/2024 Orders Only [facility] [address] [place] [address] Agnes Kan MD 10/18/2024 9:45 AM EDT Office Visit [facility] [address] [place] [address] Agnes Kan MD Hypertension, unspecified type (Primary Dx); Dietary counseling; Exercise counseling; Hyperlipidemia, unspecified hyperlipidemia type; Class 2 obesity due to excess calories without serious comorbidity with body mass index (BMI) of 39.0 to 39.9 in adult; Health care maintenance 10/18/2024 Travel 10/17/2024 Telephone [facility] [address] [place] [address] Agnes Kan MD Chart Prep 10/11/2024 Travel 10/10/2024 Patient Outreach [facility] [address] [place] [address] Agnes Kan MD Pre-visit Planning (SDOH negative, Tobacco screening negative. ) 10/04/2024 Refill [facility] [address] [place] [address] Jackie Dent MD from Last 3 Months [...] Description 12/21/2024 11:15 AM EDT Office Visit [facility] [address] [place] [phone] Agnes Kan MD [address] [place] [address] 03/02/2025 10:00 AM EDT Office Visit [facility] [address] [place] [phone] Valentine Weiner [address] [place] [address] Health Maintenance Due Date Last Done Comments CT Colonography 1979 Colonoscopy 1979 Colorectal Cancer Screening 1979 FIT DNA/Cologuard 1979 FIT 1979 FOBT 1979 Sigmoidoscopy 1979 Family Planning (PISQ) 08/15/1994 HPV Vaccines (1 - 3-dose series) 08/15/1994 COVID-19 Vaccine (3 - 2023-2 5 season) 2024 01/15/2021, 12/25/2020 Dental Oral Exam 06/30/2024 12/28/2023 Dental Prophylaxis 01/09/2025 07/11/2024, 12/28/2023, 12/28/2023 Influenza Vaccine (#1) 2025 04/25/2010 Depression Screening 03/08/2025 03/08/2024, 03/08/2024 Dental X-Ray: Bitewings 04/20/2025 04/19/20, 02/16/2024, 12/28/2023 Alcohol/Substance Use Screening 04/28/2025 04/28/2024 [...] AM EST Narrative 05/19/2024 3:07 PM EST [facility] [address] [place] [address] Mammography Report Signed Patient: Valentine Victoria MR#: [id number] : 1980 Acct:[id number] Age/Sex: 43 / F ADM Date: 05/09/24 Loc: HO.MAMMO Attending Dr: Agnes Maldonado MD Ordering Physician: Agnes Kan MD Re sults: 1Negative Date of Service: 05/09/24 Follow Up: 1 Year From Orig inal Mammogram Procedure(s): MM tomosynthesis screening BI Accession Number(s): [id number] cc: Agnes Kan MD EXAMINATION: MM SCREENING [...] 05/19/24 1504 DD/ 1100 TD/TT: 05/09/24 1117 Bpm Solution Architect: Procedure Note Donotuseinterpreter, Image - 05/19/2024 [facility] [address] [place] [address] Dr. [place]den, [place] [address] Mammography Report Signed Patient: Valentine Victoria#: [id number] : 1980Acct:[id number] Age/Sex: 43 / FADM Date: 05/09/24 Loc: HO.MAMMO Attending Dr: Agnes Maldonado MD Ordering Physician: Agnes Kan sults: 1Negative Date of Service: 05/09/24Follow Up: 1 Year From Orig inal Mammogram Procedure(s): MM tomosynthesis screening BI Accession Number(s): [id number] cc: Agnes Kan MD EXAMINATION: MM SCREENING [...] 05/19/24 1504 DD/ 1100 TD/TT: 05/09/24 1117 Bpm Solution Architect: us Agnes Maldonado MD IMG BI PROCEDURES Final Result * Hepatitis C Antibody with Reflex to HCV, RNA, Quantitative, Real-Time PCR (04/21/2024 7:53 AM EST) Hepatitis C Antibody Nonreactive Nonreactive [facility] Comment:Antibodies to HCV no t detected; does not exclude early acuteHCV infection. Blood Venous blood specimen / Unknown 04/21/2024 7:53 AM EST 04/21/2024 7:53 AM EST Agnes Maldonado MD LAB BLOOD ORDERAB LES Final Result [facility] [address] [place] [phone] * HIV-1/2 Antigen and Antibodies, Fourth Generation, with Reflexes (04/21/2024 7:53 AM EST) [facility] HIV AB/AG Nonreactive Nonreactive [facility] Comment:HIV-1 p24 Ag and/or HIV-1/HIV-2 Ab not detected.A test result that is nonreactive does not exclude thepossibility of exposure to or infection with HIV-1 and/orHIV-2. Nonreactive results in this assay for individualswith prior exposure to HIV-1 and/or HIV-2 may be due toantigen and antibody levels that are below the limit ofdetection of this assay.The [employer] HIV Ag/Ab Combo assay result andsupplemental assay results should be interpreted inconjunction with the patient's clinical presentation,history and other laboratory results. If the results areinconsistent with clinical evidence, additional testing issuggested to confirm the result. Blood Venous blood specimen / Unknown 04/21/2024 7:53 AM EST 04/21/2024 7:53 AM EST us Agnes Maldonado MD LAB BLOOD ORDERAB LES Final Result Performing Organization Address City/[facility]/ZIP Co de Phone Number [facility] [address] [place] [phone] * (ABNORMAL) Lipid Panel, Standard (04/21/2024 7:53 AM EST) Triglycerides 84 <150 mg/dL [facility] Comment:Desirable Triglyceri de: less than 150 mg/dLBorderline High Triglyceride 150-199 mg/dLHigh Triglyceride: 200-499 mg/dLVery High Triglyceride: greater than or equal to 5OO mg/dL Cholesterol 197 <200 mg/dL [facility] Comment:Desirable Cholestero l: less than 200 mg/dLBorderline High Cholesterol: 200-239 mg/dLHigh Cholesterol: greater than 239 mg/dL LDL Cholesterol Calculated 137(H) <100 mg/dL [facility] Comment:Desirable LDL: less than 100 mg/dLNear Optimal/Above Optimal LDL: 110- 129 mg/dLBorderline High LDL: 130-159 mg/dLHigh LDL: 160-189 mg/dLVery High LDL: greater than or equal to 190 mg/dL HDL Cholesterol 44 >40 mg/dL [facility] Comment:Desirable HDL: great er than 40 mg/dL Note: This HDL assay may give artificially low results in patients with liver disease. Blood Venous blood specimen / Unknown 04/21/2024 7:53 AM EST 04/21/2024 7:53 AM EST us Agnes Maldonado MD LAB BLOOD ORDERAB LES Final Result [facility] [address] [place] [phone] * THINPREP TIS PAP AND HPV mRNA E6/E7, CT/NG, TRICH (07/17/2021 12:00 AM EST) Chlamydia trachomatis RNA, TMA, Urogenital NOT DETECTED NOT DETECTED [facility] Clinical Information: None given [facility] COMMENT SEE COMMENT [facility] Comment: The analytical performance characteristics of this assay, when used to test SurePath(TM) specimens have been determined by [employer] [facility]. The modifications have not been cleared or approved by the FDA. This assay has been validated pursuant to the CLIA regulations and is used for clinical purposes. For additional information, please refer to https://education.[employer]/faq/PIJ028 (This link is being provided for information/ [...] has been evaluated with computer assisted technology. [facility] Data Processing Clerk: SEE COMMENT [facility] Comment: YP, CT(ASCP) CT screening location: [place] [address] HPV nRNA E6/E7 Not Detected Not Detected [facility] Comment: Methodology: Pipeline Operator-Mediated Amplification This assay detects E6/E7 viral messenger RNA (mRNA) from 14 high-risk HPV types (16,18,31,33,35,39,45,51,52,56,58,59,66,68). The analytical performance characteristics of this assay have been determined by [facility]. The modifications have not been cleared or approved by the FDA. This assay has been validated pursuant to the CLIA regulations and is used for clinical purposes. For additional information, please refer to http://[employer]/faq/LAC877m9 (This link if provided for information/ educational purposes only.) Infection Fungal organisms morphologically consistent with Maryjane spp. [facility] Interpretation/Re sult: Negative for intraepithelial lesion or malignancy. [facility] LMP: NONE GIVEN [facility] Neisseria gonorrhoeae RNA, TMA, Urogenital NOT DETECTED NOT DETECTED [facility] Prev. BX: NONE GIVEN [facility] Prev. PAP: NONE GIVEN [facility] SOURCE: None given [facility] Statement Of Adequacy: SEE COMMENT [facility] Comment: Satisfactory for evaluation. Endocervical/transformation zone component present. Age and/or menstrual status not provided Trichomonas vaginalis, QL, TMA, PAP Vial NOT DETECTED NOT DETECTED [facility] Comment: The analytical performance characteristics of this assay have been determined by [facility]. The modifications have not been cleared or approved by the FDA. This assay has been validated pursuant to the CLIA regulations and is used for clinical purposes. For additional information, please refer to http://education.[employer]/ faq/Trichomonastma (This link is being provided for information/ educational purposes only.) 07/17/2021 Caryl Everett NP LAB PATHOLOGY ORDERABLES Final Result [facility] [address] [place] [address], from Last 3 Months or Most Recently Relevant to Health Maintenance Insurance [facility] C3 DENTAL-[facility] MEDICAID STAND ADULT Care Teams Plant Tender Relationship Specialty Start Date End Date Agnes Kan MD [address] [place] [phone] PCP - General Internal Medicine 01/05/23
[2024-12-15 07:09] VITALS: BMI 39.7
[2024-12-15 09:54] VITALS: BP 136/69; PULSE 58; RESP 18; TEMP 36.1; O2SAT 98; BMI 40.1
--- NOTE | 2024-12-15 10:06 | MHC.SHP ---
Pre-Procedural Eval Section A - 24 Hr Update-Section A only Date of Service: 12/15/24 The patient is an INPATIENT: No The patient has been examined within 24 hours of the surgical procedure. The History & Physical has been completed within 30 days and I have reviewed it.: No Section B - Complete if H&P > 30 days Chief Complaint: nausea,abdominal distension,constipation Relevant Family History (Specify if Yes): No Relevant Social History: None Present Medications: see Short Stay Collaborative assessment Medical History: Significant History (Obesity (BMI 35.0-39.9 without comorbidity) Iron deficiency anemia due to chronic blood loss Chronic constipation GERD with esophagitis) History of Previous Operations: Relevant previous surgery/procedure and date(s) (History of EGD) Allergies: Allergies Allergy/AdvReac Type Severity Reaction Status Date / Time No Known Allergies Allergy Verified 11/08/24 09:42 Review of Systems Sugical H&P ROS: Negative: Constitution, Cardiovascular, Respiratory and Gastrointestinal Exam Surgical H&P Exam: Normal: Heart, Normal: Lungs, Normal: Extremities and Normal: Abdomen Plan Diagnosis/Plan: Unchanged I have reviewed the history and physical and performed a pertinent physical examination on my patient. No changes have occurred unless specified. Time Spent With Patient Time: Total time managing care of this patient today ____ minutes.
[2024-12-15 10:07] LABS: UPreg QC Valid YES
[2024-12-15] MEDS: Lactated Ringers 1,000 ML 50 ML IVCONT (10:09)
--- NOTE | 2024-12-15 11:07 | HO.ANESPROP2 ---
HPI - Anesthesia Eval Consult details Narrative: for colonoscopy PMFSH Active Problems Active Problems: All Active Problems Abdominal bloating (Acute) Nausea (Acute) Abdominal pain (Acute) Vitamin B12 deficiency (Acute) Obesity (BMI 35.0-39.9 without comorbidity) (Acute) Iron deficiency anemia due to chronic blood loss (Acute) Chronic constipation (Acute) GERD with esophagitis (Acute) Past Medical History Medical History (System 06/10/23 @ 11:15 by Kasia Austin) Obesity (BMI 35.0-39.9 without comorbidity) Iron deficiency anemia due to chronic blood loss Chronic constipation GERD with esophagitis Patient : No Family History Family History Paternal Grandmother Stomach cancer Family history of problems with anesthesia: No Surgical History Surgical History History of esophagogastroduodenoscopy (EGD) (~11/2017) History of Problems with Anesthesia: No Social History Social History Household Members: Spouse and Children Alcohol intake: never Patient Tobacco Use Status: Never used Tobacco Have you been hit, kicked, punched, or otherwise hurt by someone within the past year? If so, by whom?: No Are you DNR?: No Advance Directives: No Advance Directives Information Provided: Yes Patient : No Meds Allergies Allergy/AdvReac Type Severity Reaction Status Date / Time No Known Allergies Allergy Verified 11/08/24 09:42 Active Medications: Current Medications Lactated Ringer's (Lr) 1,000 mls @ 50 mls/hr IVCONT .Q20H KANDACE Last Admin: 12/15/24 10:09 Dose: 50 mls/hr Home Medications ?Medication ?Instructions ?Recorded ?Confirmed ?Last Taken ?Type cholecalciferol (vitamin D3) 50 50 mcg PO DAILY 02/29/20 12/15/24 Unknown History mcg (2,000 unit) capsule verapamil 240 mg 24 hr 240 mg PO DAILY 04/22/23 12/15/24 Unknown History capsule,extended release losartan 25 mg tablet 25 mg PO DAILY 11/08/24 12/15/24 Unknown History Exam Height,Weight and Vital Signs: Height 5 ft 2 in Weight 99.427 kg Last Vital Signs Temp 96.9 F 12/15/24 09:54 Pulse 58 12/15/24 09:54 Resp 18 12/15/24 09:54 BP 136/69 12/15/24 09:54 Pulse Ox 98 12/15/24 09:54 O2 Del Method Room Air 12/15/24 09:54 Pertinent Lab Results Pertinent Lab Results: Laboratory Tests 12/15/24 09:45 Urine Test NEGATIVE Assessment and Plan Final Anesthetic Review Family History of Problems with Anesthesia: No History of Problems with Anesthesia: No NPO: Yes ASA Class: III Final Preanesthetic Review: No Changes in Pt Med Stat, Meds/Allgs Chart Reviewed, Consent Obtained/Reviewed and Anes Risks/Benef Reviewed Patient Risk: Intermediate Procedure Risk: Low Anesthetic Plan Anesthetic Plan: MAC: and Agree w/ Assess. and Plan Disposition: Standard PACU
--- NOTE | 2024-12-15 11:40 | HO.OPN-COLON ---
Colonoscopy Operative Note Operative Note Date of Service: 12/15/24 Narrative: COLONOSCOPY TILL CECUM WITH BIOPSIES Pre-op diagnosis: Colon cancer screening (first colon). Post-op diagnosis:? Colon polyp, Diverticulosis, Endoscopist:? Alexis Lowe MD Anesthesia:?MAC Consent: Indications for the procedure and potential complications of bleeding, perforation, reaction to medications and missed diagnosis were discussed with the patient and informed consent was obtained. Instrument: Olympus PCF H 190 L variable stiffness pediatric colonoscope Monitoring: Vital signs and clinical assessment, intermittent blood pressure monitoring, continuous EKG monitoring, Pulse oximetry and Carbon Dioxide monitoring were done throughout the procedure. Please see anesthesia flowsheet. Colon withdrawl time was 13 minutes. Procedure: The patient was placed in the left lateral decubitis position and pre-procedure medications were administered. After a digital rectal examination of the ano-rectum, the video colonoscope was inserted into the rectum and advanced through the colon to the cecum. The colonoscope was slowly withdrawn in a retrograde panoramic fashion and the colon mucosa was carefully examined including a retroflexed view of the rectum. Findings and interventions are described below. Procedure Difficulty: without difficulty Findings: Terminal Ileum: Not evaluated Cecum: Normal Ascending Colon: Normal Transverse Colon: Normal Descending Colon: Normal Sigmoid Colon: Moderate diverticulosis Rectum: A few 2-3 mm diminutive appearing polyps in the rectosigmoid - 1 removed with a cold biopsy. Ano-rectum: Normal Colon preparation: Excellent, after some irrigation. [place] Bowel Preparation Scale Right colon; 3 Transverse colon: 3 Left colon; 3 (0 = Unprepared colon segment with mucosa not seen due to solid stool that cannot be cleared. 1 = Portion of mucosa of the colon segment seen, but other areas of the colon segment not well seen due to staining, residual stool and/or opaque liquid. 2 = Minor amount of residual staining, small fragments of stool and/or opaque liquid, but mucosa of colon segment seen well. 3 = Entire mucosa of colon segment seen well with no residual staining, small fragments of stool or opaque liquid) Impression and Post Procedure Diagnosis: Colonoscopy Findings: A few 2-3 mm diminutive appearing polyps in the rectosigmoid - 1 removed with a cold biopsy. Moderate diverticulosis seen in the sigmoid colon Plan: Pt has a FU appointment on 02/22/[address] Lowe Repeat Colonoscopy in 5 years if polyps are adenomatous and 10 year if polyps are hyperplastic. Above findings were reviewed with the patient and relevant handouts were given and the discharge area. BIOPSIES SHOWED: Colon, rectal polyp: Colonic mucosa with minimal hyperplastic changes on initial levels (see comment). Letter sent to the patient with biopsy results. Patient placed on the colonoscopy recall list for repeat colonoscopy in 10 years.
[2024-12-15 11:43] VITALS: BP 104/57; PULSE 75; RESP 19; TEMP 36.1; O2SAT 95
[2024-12-15 11:58] VITALS: BP 122/78; PULSE 68; RESP 17; O2SAT 98
== END 2024-12-15 12:37 | disposition home or self-care (01) ==
PROVIDERS: Anesthesiology; PCP Student in an Organized Health Care Education/Training Program; Visit Provider Internal Medicine Gastroenterology
PROC: 0DJD8ZZ Inspection of Lower Intestinal Tract, Via Natural or Artificial Opening Endoscopic (ICD-10-PCS; CPT 45378; principal; 2024-12-15 11:10)
DX: Z12.11 Encounter for screening for malignant neoplasm of colon (principal); K63.5 Polyp of colon; K57.30 Diverticulosis of large intestine without perforation or abscess without bleeding; K64.8 Other hemorrhoids; K21.00 Gastro-esophageal reflux disease with esophagitis, without bleeding; K59.09 Other constipation; R14.0 Abdominal distension (gaseous)
CPT/HCPCS: 45380; 81025; 88305; J2003; J2704

== ENCOUNTER → 2024-12-15 09:16 | Outpatient (BNV) | payer MEDICAID, SELFPAY | PROVIDERS: PCP Student in an Organized Health Care Education/Training Program; Visit Provider Internal Medicine Gastroenterology | DX: Z12.11 Encounter for screening for malignant neoplasm of colon (principal); K63.5 Polyp of colon; K57.90 Diverticulosis of intestine, part unspecified, without perforation or abscess without bleeding | CPT/HCPCS: 45380 ==

== ENCOUNTER 2025-02-15 10:17 | Outpatient (AMB) | payer MEDICAID, SELFPAY ==
[2025-02-15 10:31] VITALS: BP 132/79; PULSE 89; RESP 16; O2SAT 98; BMI 40.1
--- NOTE | 2025-02-15 10:31 | A.OFFVIS_ITS ---
Vital Signs 02/15/25 10:31 Height 5 ft 2 in Weight 219 lb BMI 40.1 BP 132/79 Blood Pressure Location Rt brachial Position Sitting Respiration 16 Pulse 89 Pulse Oximetry (%) 98 Intake Visit Reasons: [address] In Theater Attendant Required: No Allergies No Known Allergies Allergy (Verified 02/15/25 10:31) Medication List - Last Reconciled 02/15/25 by Linda Green CNP amitriptyline 10 mg PO BEDTIME cholecalciferol (vitamin D3) 50 mcg PO DAILY dicyclomine 20 mg PO BID PRN 90 days famotidine 20 mg PO Q12H 90 days ibuprofen 600 mg PO DAILY PRN losartan 25 mg PO DAILY rizatriptan 5 mg PO DAILY PRN verapamil ER 240 mg PO DAILY HPI Comments Details: Valentine is a 44-year-old female patient following in the clinic for migraine without aura. She has been taking verapamil 240 mg once daily for her migraines and rizatriptan 5 mg as needed for abortive therapy. She is here today for a follow-up visit. She tells me today, that generally she has been doing well asside from yesterday when she developed a headache with some sinous congestion. Prior to her sinus infection that she is currently experiencing, she has been averaging 2-3 headaches per week lasting typically degraded part of a day. Headaches are located to the right parietal and occipital areas. She does not have any other symptoms with her headaches aside from some neck pain. Specifically, she denies any light sensitivity, sound sensitivity, nausea, or dizziness. She does feel that her trapezius muscles are often very tight. She is still taking Verapamil and does feel that it has been slightly helpful. The rizatriptan that she is using for her pain does help a little bit . She has better effect when used with ibuprofen but this can cause her stomach upset. Sleep has been good without any difficulties. She denies any significant added stress. [facility] Medical History (Updated 02/15/25 @ 11:06 by Linda Green CNP) Migraine Obesity (BMI 35.0-39.9 without comorbidity) Iron deficiency anemia due to chronic blood loss Chronic constipation GERD with esophagitis Surgical History (Updated 01/31/25 @ 08:28 by Agnes Barron) Hx of colonoscopy History of esophagogastroduodenoscopy (EGD) (~11/2017) Family History Paternal Grandmother Stomach cancer Social History Household Members: Spouse and Children Alcohol intake: never Patient Tobacco Use Status: Never used Tobacco Review of Systems Const All systems reviewed & are unremarkable except as noted in HPI and below Physical Exam Vital Signs: Last Vital Signs Pulse 89 02/15/25 10:31 Resp 16 02/15/25 10:31 BP 132/79 02/15/25 10:31 Pulse Ox 98 02/15/25 10:31 BMI result Body Mass Index 40.1 Const General: cooperative, healthy appearing, comfortable and no acute distress Nutritional Appearance: well nourished Orientation/consciousness: patient oriented x3 Limitations: no limitations HEENT Head: Yes normal to inspection and Yes normocephalic Eyes General: appearance normal, both eyes and all related structures Visual Francis: normal visual francis by confrontation Alignment and Position: alignment normal Periorbital: periorbital findings normal Eyelids: Yes eyelids normal Conjunctivae: conjunctivae normal Sclerae: sclerae normal Neck Neck: Yes normal visual inspection and Yes full ROM Back/Spine/Pelvis Other: Bilateral upper trapezius tightening and some tenderness with palpation bilaterally to the upper trapezius muscles. Neuro General: patient oriented x3 and deep tendon reflexes 2+ bilaterally Cranial nerves: Yes CN's II-XII intact bilaterally and Yes Facial sensation intact/muscles of mastication intact Cognition (Neuro): normal cognition Gait exam (Neuro): Normal gait present Motor exam (neuro): 5/5 motor strength present throughout and no tremor noted Sensory Exam: double simultaneous stimulation for sensation normal Romberg Test: Negative Pupils: Normal pupillary reactivity/response: bilateral Psych Appearance: grossly normal Mental Status: mental status grossly normal Speech and movement: Normal speech and movement present and Clear speech present Affect: normal affect Attitude: cooperative Thought process: Normal thought process present Thought content: Normal thought content present Insight: Good insight present (Psych) Judgement: Good judgement present (Psych) Assessment & Plan Assessment & Plan (1) Migraine without aura and without status migrainosus, not intractable: Code(s): G43.009 - Migraine without aura, not intractable, without status migrainosus Category: Medical Plan Valentine is a 44-year-old female patient following in the clinic for migraine without aura. She has been taking verapamil 240 mg once daily for her migraines and rizatriptan 5 mg as needed for abortive therapy. Currently, she is still having 3-4 migraines per week on the verapamil which is also being used for blood pressure control. She has only partial improvement of her headache with the use of rizatriptan. I will increase her rizatriptan from 5 mg to 10 mg and start her on a trial of low-dose amitriptyline at bedtime for added headache maintenance. She does endorse some myofascial tenderness and she is tense to her trapezius muscles on exam. I am hopeful that the amitriptyline does provide some added muscle relaxation benefit for her. She was advised to take this medication temporal or so before she awakes next day to avoid daytime somnolence. -increase rizatriptan from 5 mg to 10 mg -continue on verapamil 240 mg ER which is also being used for BP control -start a trial of low dose amitroptyline at bedtime for added headache maintenance Medications: New amitriptyline 10 mg PO BEDTIME 30 tabs 4RF Coding Level of Care Code Est Pt Level 4 (03061) Diagnoses Migraine without aura and without status migrainosus, not intractable G43.009
== END 2025-02-15 11:02 | disposition home or self-care (01) ==
LOC: HO.HSM 10:18
PROVIDERS: PCP Student in an Organized Health Care Education/Training Program; Visit Provider Nurse Practitioner
DX: G43.009 Migraine without aura, not intractable, without status migrainosus (principal)
CPT/HCPCS: 99214

== ENCOUNTER → 2025-02-15 10:17 | Outpatient (BNVA) | payer MEDICAID, SELFPAY | PROVIDERS: PCP Student in an Organized Health Care Education/Training Program; Visit Provider Nurse Practitioner | DX: G43.009 Migraine without aura, not intractable, without status migrainosus (principal) | CPT/HCPCS: 99212 ==

== ENCOUNTER 2025-02-22 10:54 | Outpatient (AMB) | payer MEDICAID, SELFPAY ==
--- NOTE | 2025-02-22 11:09 | MHC.OFFVIS ---
Vital Signs 02/22/25 11:10 Height 5 ft 2 in Weight 219 lb BMI 40.1 BP 140/68 H Blood Pressure Location Lt brachial Position Sitting Pulse 67 Pulse Oximetry (%) 96 Oxygen Delivery Method Room Air Intake Visit Reasons: s/p colo Intake Note: Patient follow up for Abdominal bloating and Colonoscopy results. Patient deniesa ny GI issues for today visit. Parts Picker Required: No Accompanied by: Self / Same As Patient Allergies No Known Allergies Allergy (Verified 02/22/25 11:08) Medication List - Last Reconciled 02/22/25 by Alexis Lowe MD amitriptyline 10 mg PO BEDTIME cholecalciferol (vitamin D3) 50 mcg PO DAILY diclofenac sodium 1% 2 grams topical QID PRN dicyclomine 20 mg PO BID PRN 90 days famotidine 20 mg PO Q12H 90 days ibuprofen 600 mg PO DAILY PRN losartan 25 mg PO DAILY rizatriptan 5 mg PO DAILY PRN verapamil ER 240 mg PO DAILY HPI HPI s/p colo: Details: GI Clinic visit for this 44-year-old female for FU of GERD, iron and vitamin B12 deficiency and chronic constipation. ? CHRONIC ILLNESSES:?GERD, Constipation, Fe anemia- heavy menses (stable), EGD 11/2017 ? ? TODAY'S VISIT Patient follow up for Abdominal bloating, david was 04/22/2023. My stomach is good - not like before Had some constipation last week - going twice a day this week. Denies black stools or rectal bleeding. Denies FH of colon polyps or colon cancer. Pt advised to schedule a colonoscopy for colon cancer screening - she would like to schedule during her summer vacation. PAST VISITS: Lab results reviewed - anemia has resolved Patient here for FU of abdominal bloating and lab results. Patient cc: GERD in the morning. Denies any other GI issues. Acid reflux is getting better. Notes symptoms only in the am and ok the rest of the day Notes heartburn and acid regurgitation when she wakes. Has dinner at 4:30 pm and sleeps at 10;30 pm. Having a BM daily PAST VISIT: Gas is not too much of a problem Noted constipation 2 weeks ago. Took prunes and had multiple BMs since she was backed up. Complains of gas and heartburn. Menstruation lasts 4 days. Takes Senna prn for constipation and dicyclomine for abdominal pain. She, her and son had COVID in 03/2021 Notes heartburn and abdominal pain since she had the COVID vaccine in January. Notes noise in her throat and belly. Has to use the rest room 2-3 times in the am. Stools can be soft to watery without blood or mucous. Notes some heartburn and abdominal discomfort. Lab results reviewed mild anemia and low vitamin B12. Works out on the Treadmill 20 min daily LABS IN [place]:?12/28/18 H&H of 11.7 and 36 (stable since July 2017), normal LFTs and lipase, vitamin 07/12 B12 204 IMAGING STUDIES:?May 2021 GASTRIC EMPTYING STUDY SHOWED: 1 hour 88% (normal 37%-90%) 2 hours 51% (normal 30%-60%) 3 hours 10% 4 hours 3% (normal 0%-10%)IMPRESSION: Normal 4-hour solid food gastric emptying study. 01/02/19 Abd US was normal ENDOSCOPIC STUDIES:? 11/2024 COLONOSCOPY SHOWED: A few 2-3 mm diminutive appearing polyps in the rectosigmoid - 1 removed with a cold biopsy. Moderate diverticulosis seen in the sigmoid colon Plan: Repeat Colonoscopy in 5 years if polyps are adenomatous and 10 year if polyps are hyperplastic. BIOPSIES SHOWED: Colon, rectal polyp: Colonic mucosa with minimal hyperplastic changes on initial levels (see comment). Letter sent to the patient with biopsy results. Patient placed on the colonoscopy recall list for repeat colonoscopy in 10 years. 12/14/17? EGD SHOWED: ESOPHAGUS: Grade 1 esophagitis STOMACH: Gastric polyps and gastritis DUODENUM: Normal No source found for abdominal pain Plan: Above findings were discussed with Valentine and she was advised to keep her FU appt in GI. BIOPSIES SHOWED: ? A. ? SMALL BOWEL, BIOPSIES:? FRAGMENTS OF UNREMARKABLE SMALL INTESTINAL MUCOSA.? THERE IS NO EVIDENCE OF CELIAC DISEASE OR SPRUE SEEN. B. ? GASTRIC, BIOPSIES:? FRAGMENTS OF ANTRAL AND FUNDIC TYPE GASTRIC MUCOSA WITH CHEMICAL/IRRITATIONAL ?GASTRITIS.? THE HELICOBACTER PYLORI IMMUNOHISTOCHEMICAL STATIN IS NEGATIVE. ?C. ? GASTRIC, POLYP, BIOPSIES:? FRAGMENTS OF FUNDIC GLAND POLYP [facility] Medical History (Updated 02/15/25 @ 11:06 by Linda Green CNP) Migraine Obesity (BMI 35.0-39.9 without comorbidity) Iron deficiency anemia due to chronic blood loss Chronic constipation GERD with esophagitis Surgical History Hx of colonoscopy History of esophagogastroduodenoscopy (EGD) (~11/2017) Family History Paternal Grandmother Stomach cancer Social History Household Members: Spouse and Children Alcohol intake: never Patient Tobacco Use Status: Never used Tobacco Review of Systems Const All systems reviewed & are unremarkable except as noted in HPI and below Physical Exam Const General: no acute distress Nutritional Appearance: obese Orientation/consciousness: patient oriented x3 Limitations: no limitations HEENT Head: Yes normal to inspection Ears: hearing grossly normal bilaterally Eyes Sclerae: sclerae normal Pupils: Equal, round and reactive pupils present Neck Neck: Yes normal visual inspection Chest Chest palpation & inspection: normal inspection of the chest Resp Effort & Inspection: normal respiratory effort Auscultation: clear to auscultation bilaterally Cardio Palpation: normal PMI Rate: regular rate Rhythm: regular rhythm Heart sounds: S1 normal heart sound present, S2 normal heart sound present and no murmurs GI Palpation (GI): Soft to palpation, nontender and No hepatosplenomegaly present Auscultation: normal bowel sounds Rectal Exam - Female: deferred Skin General skin exam: no rashes or lesions noted Neuro General: patient oriented x3, gait normal and moves all extremities Cranial nerves: Yes Equal, round and reactive pupils present Psych Appearance: grossly normal Mental Status: mental status grossly normal Assessment & Plan Assessment & Plan (1) GERD with esophagitis: Comment: continue omeprazole 20 mg twice daily. Code(s): K21.00 - Gastro-esophageal reflux disease with esophagitis, without bleeding Category: Medical (2) Chronic constipation: Comment: Continue Senna twice a week. Code(s): K59.09 - Other constipation Category: Medical (3) Abdominal pain: Code(s): R10.9 - Unspecified abdominal pain Category: Medical (4) Nausea: Code(s): R11.0 - Nausea Category: Medical (5) Abdominal bloating: Code(s): R14.0 - Abdominal distension (gaseous) Category: Medical (6) Obesity (BMI 35.0-39.9 without comorbidity): Code(s): E66.9 - Obesity, unspecified Category: Medical Plan 44 YF with GERD, Constipation, Fe anemia- heavy menses (stable), Patient complained of right-sided flank pain associated with intake of fried foods suggestive of biliary or pancreatic source of pain. Past abdominal ultrasound in December 2013 was normal.? EGD 11/2017 showed grade 1 esophagitis, gastritis and benign gastric polyps. Gastric emptying study was normal. GERD symptoms are controlled with Omeprazole 20 mg twice daily. Stopped eating fried foods and rt flank pain has resolved. Has a BM almost every day - takes Senna twice a week. Iron deficiency anemia due to chronic blood loss - resolved. 11/08/24 patient was advised to schedule a screening colonoscopy. She denies any lower GI symptoms. Colonoscopy procedure, prep instructions and potential complications including bleeding, perforation and reaction to anesthetics were reviewed with the. 02/22/25 colonoscopy results reviewed with the patient. Advised to schedule abdominal ultrasound with elastography to rule out fatty liver. Patient will discuss medical treatment (Injections) for obesity with her PCP on her next visit in March 2025 Patient was advised to schedule a follow-up appointment in 6 months Orders: Orders US abdomen purvis w elastography Today E66.9 - Obesity, unspecified Coding Level of Care Code Est Pt Level 3 (29523) Diagnoses GERD with esophagitis K21.00 Chronic constipation K59.09 Abdominal pain R10.9 Nausea R11.0 Abdominal bloating R14.0 Obesity (BMI 35.0-39.9 without comorbidity) E66.9 Time Spent (min) 15
[2025-02-22 11:10] VITALS: BP 140/68; PULSE 67; O2SAT 96; BMI 40.1
--- OUTSIDE RECORDS SUMMARY | 2025-02-22 12:49 | XMS_ITS | Encounter Summary ---
Author Organization [employer] Address [address] [place] [address] [address] [place] [address] Care Team Providers Care Heating Plant Superintendent Name Role Phone Agnes Kan MD Primary Care Pro vider Reason for Visit * Reason Onset Date Comments Med Refill 01/23/2025 Encounter Details Date Type Department Care Team ([facility] st Contact Info) Description 01/23/2025 Refill [facility] [address] [place] [address] Jackie Dent MD [address] [place] [address] Social History Tobacco Use Types Packs/Day Years Used Date Smoking Tobacco: Never Passive Smoke Exposure: Never Smokeless Tobacco: Never Alcohol Use Standard Drinks/Week Comments Never 0 [...] Orientation Straight 03/23/2022 10 :18 AM EDT documented as of this encounter Plan of Treatment Upcoming Encounters Date Type Department Care Team (Late st Contact Info) Description 03/02/2025 10:15 AM EDT Office Visit [facility] [address] [place] [id number] Regine, Valentine [address] [place] [address] 04/17/2025 10:45 AM EST Office Visit [facility] [address] [place] [phone] Agnes Kan MD [address] [place] [phone] documented as of this encounter Visit Diagnoses Not on filedocumented in this encounter Additional Health Concerns Assessment Noted Time PHQ-9 Depression Total Score: 0 03/08/20 24 11:39 AM EDT documented as of this encounter Care Teams Heating Plant Superintendent Relationship Specialty Start Date End Date Agnes Kan MD [address] [place] [id number] PCP - General Internal Medicine 01/05/23 documented as of this encounter
--- OUTSIDE RECORDS SUMMARY | 2025-02-22 12:49 | XMS_ITS | Clinical Summary ---
Author Organization [employer] Address [address] [facility] 7t [place] [address] Care Team Providers Care Shipping And Receiving Associate Name Role Phone Agnes Kan MD Primary [...] bedtime. Do not crush or chew. Active docusate sodium (Colace) 100 MG capsule Take 1 tab po bid prn constipation 60 capsule 3 4 Active cetirizine (ZyrTEC) 10 MG tablet Take 1 tablet (10 mg) by mouth Once per day. 90 tablet 4 04/28/20 25 Active Magnesium Extra Strength 400 MG capsule TAKE 1 CAPSULE BY MOUTH EVERY DAY IN THE MORNING 90 capsule 4 Active buPROPion SR (Wellbutrin SR) 100 MG 12 hr tablet Take 1 tablet (100 mg) by mouth 2 times daily. Do not crush, chew, or split. 60 tablet 2 5 05/29/20 26 Active losartan (Cozaar) 25 MG tablet Take 1 tablet (25 mg) by mouth Once per day. 90 tablet 5 Active cholecalciferol VITAMIN D (Vitamin D-3) 50 MCG (2000 UT) capsule TAKE 1 CAPSULE (50 MCG) BY MOUTH IN THE MORNING 90 capsule 5 Active Active Problems Problem Noted Date [...] Encounters Date Type Department Care Team Description 01/23/2025 Refill [facility] MEDICINE [address] [place] [address] Jackie Dent MD 01/23/2025 Refill [facility] MEDICINE [address] [place] [address] Jackie Dent MD 01/23/2025 Refill [facility] MEDICINE [address] [place] [address] Agnes Kan MD 01/20/2025 Refill [facility] MEDICINE [address] [place] [address] Agnes Kan MD 12/21/2024 11:15 AM EDT Office Visit [facility] MED[facility]INE [address] [place] [address] Agnes Kan MD Hypertension, unspecified type (Primary Dx); Class 2 obesity due to excess calories without serious comorbidity with body mass index (BMI) of 39.0 to 39.9 in adult; Health care maintenance; Gastroesophageal reflux disease without esophagitis 12/21/2024 Travel 12/20/2024 Telephone [facility] [address] [place] [address] Agnes Kan MD 12/15/2024 Orders Only GENERIC EXTERNAL DATA DEPARTMENT Provider, Generic External Data 12/14/2024 Travel from Last 3 Months Immunizations Immunization Administration [...] Sign Reading Time Taken Comments Blood Pressure 128/82 12/21/2024 11:20 AM EDT Pulse 75 12/21/2024 11:20 AM EDT Temperature 35.6 C (96 F) 12/21/2024 11:20 AM EDT Respiratory Rate 16 12/21/2024 11:20 AM EDT Oxygen Saturation 98% 12/21/2024 11:20 AM EDT Inhaled Oxygen Concentration - - Weight 101 kg (222 lb 3.2 oz) 12/21/2024 11:20 A M EDT Height 157.5 cm (5' 2 ) 12/21/2024 11:20 AM EDT Body Mass Index 40.64 12/21/2024 11:20 AM EDT Plan of Treatment Upcoming Encounters Date Type Department Care Team (Late st Contact Info) Description 03/02/2025 10:15 AM EDT Office Visit [facility] ADULT DENTAL [address] [place] [phone] Regine, Valentine [address] [place] [phone] 04/17/2025 10:45 AM EST Office Visit [facility] MEDICINE [address] [place] [phone] Agnes Kan MD [address] [place] [address] Health Maintenance Due Date Last Done Comments CT Colonography 1980 Colonoscopy 1980 Colorectal Cancer Screening 1980 FIT DNA/Cologuard 1979 FIT 1979 FOBT 1980 Sigmoidoscopy 1980 Family Planning (PISQ) 08/15/1994 HPV Vaccines (1 - 3-dose series) 08/15/1994 Dental Oral Exam 06/30/2024 12/28/2023 Dental Prophylaxis 01/09/2025 07/11/2024, 12/28/2023, 12/28/2023 COVID-19 Vaccine (3 - 2024-2 6 season) 2025 01/15/2021, 12/25/2020 Influenza Vaccine (#1) 2025 04/25/2010 Depression Screening 03/08/2025 03/08/2024, 03/08/2024 Dental X-Ray: Bitewings 04/20/2025 04/19/20, 02/16/2024, 12/28/2023 Alcohol/Substance Use Screening 04/28/2025 04/28/2024 SDOH Screening 10/10/2025 10/10/2024 Disability Screening 10/18/2025 10/18/2024 Tobacco Screening 12/21/2025 12/21/2024 Mammogram 05/09/2026 05/09/2024, 04/16/2023, 06/17/2020 Cervical Cancer [...] Procedure Name Priority Date/Time Associated Diagnosis Comments HEMATOXYLIN AND EOSIN STAIN Routine 12/15/2024 11:43 AM EDT HCG, QL, URINE Routine 12/15/2024 9:45 AM EDT PROPHYLAXIS - ADULT Routine 07/11/2024 8 :00 [...] Recently Relevant to Health Maintenance Results * Hematoxylin and Eosin Stain (12/15/2024 11:43 AM EDT) 12/15/2024 11:4 3 AM EDT 12/15/2024 12:40 PM EDT [facility] - 12/20/2024 8:53 AM EDT ----- ------- Name: Luis Angel HigginsValentine Age/Sex: 44/F : 1980 Unit#: [id number] Attend Dr: Alexis Lowe MD Re12/15/24 Status: [facility] Disch: ----- ------- SPEC : [id number] RECD: 12/15/24 STATUS: PERFECTOMillicent SHAVER NUM: [id number] AB: 12/15/24-[address] [facility] [address]: Alexis Lowe MD ENTERED: 12/15/24 SP TYPE: Surgical OTHR DR: Agnes Kan MD ORDERED: HE Stain/3, Gross Micro L4 Addendum Addendum 1 Entered: 12/20/24 Additional tissue levels show features consistent with hyperplastic polyp; no adenomatous dysplasia seen. Addendum Signed (signature on file) Gladys Quiroz 12/20/24 0853 ----- ------- Diagnosis Colon, rectal polyp: Colonic mucosa with minimal hyperplastic changes on initial levels (see comment). Comment: Additional tissue levels pending; addendum to follow. Clinical History Pre-Op Dx: Nausea, abdominal distension, constipation Post-Op Dx: Colon polyp, diverticulosis, hemorrhoids Microscopic Description Microscopic sections reviewed. Material Received Rectal polyp Gross Description Received in formalin labeled rectal polyp is a 0.3 cm rivera-pink irregular tissue fragment, submitted in toto in a cassette labeled AMick CEDYuri CONTINUED ON NEXT PAGE ----- ------- Name: Valentine Victoria Age/Sex: 44/F : 1980 Unit#: [id number] Attend Dr: Alexis Lowe MD Re12/15/24 Status: [facility] Location: [facility] Disch: ----- ------- SPEC : [id number] RECD: 12/15/24 STATUS: MARISOL SHAVER NUM: [id number] AB: 12/15/24-[address] [facility] [address]: Alexis Lowe MD ENTERED: 12/15/24 SP TYPE: Surgical OTHR DR: Agnes Kan MD ORDERED: HE Stain/3, Gross Micro L4 IHC S/NG Disclaimer NOTE: Unless otherwise stated, all tissue is formalin-fixed and paraffin-embedded. Some or all of the immunohistochemical tests reported herein may have been developed and their performance characteristics determined by [facility]. They have not been cleared or approved by the U.S. Food and Drug Administration (FDA). However, the FDA has determined that such clearance or approval is not necessary. This laboratory is certified under the Clinical Laboratory Improvement Amendments of 1988 (CLIA) as qualified to perform high complexity clinical laboratory testing. Copies To: Alexis Lowe MD [facility] [address] [place] [address] [phone] Agnes Kan MD [address] [place] [address] [phone] ----- ------- Signed (signature on file) Gladys Leeds 12/18/24 1618 ----- ------- END OF REPORT us Generic External Data Provider LAB BLOOD ORDERAB LES Final Result [facility] [address] [place], [place] [phone] * HCG, Qualitative, Urine (12/15/2024 9:45 AM EDT) Urine NEGATIVE NEGATIVE [facility] Comment:This test was develo ped to detect early . Falsenegative results may occur after the 5th - 7th week ofpregnancy when using this test method. If clinicallyindicated, consider a serum hCG. 12/15/2024 9:45 AM EDT 12/15/2024 10:00 AM EDT us Generic External Data Provider LAB URINE ORDERAB LES Final Result Performing Organization Address City/State/[facility] Co de Phone Number [facility] [address] [place] [address] [phone] * BI Mammogram Screening Tomosynthesis Bilateral (05/09/2024 11:00 AM EST) Anatomical Region Laterality Modality Breast Bilateral Mammography 05/09/2024 11:0 0 AM EST Narrative 05/19/2024 3:07 PM EST [facility] [address] [place] [address] Mammography Report Signed Patient: Valentine Victoria MR#: [id number] : 1980 Acct:[id number] Age/Sex: 43 / F ADM Date: 05/09/24 Loc: HO.MAMMO Attending Dr: Agens Maldonado MD Ordering Physician: Agnes Kan MD Re sults: 1Negative Date of Service: 05/09/24 Follow Up: 1 Year From Orig inal Mammogram Procedure(s): MM tomosynthesis screening BI Accession Number(s): [id number] cc: Agnes Kan MD EXAMINATION: MM SCREENING [...] 05/19/24 1504 DD/ 1100 TD/TT: 05/09/24 1117 Baby Counselor: Procedure Note Donotuseinterpreter, Image - 05/19/[facility] [address] [place] [address] Mammography Report Signed Patient: Vaelntine VictoriaMR#: [id number] : 1980Acct:[id number] Age/Sex: 43 / FADM Date: 05/09/24 Loc: HOJACINTO Attending Dr: Agnes Maldonado MD Ordering Physician: Agnes Kan sults: 1Negative Date of Service: 05/09/24Follow Up: 1 Year From Orig inal Mammogram Procedure(s): MM tomosynthesis screening BI Accession Number(s): [id number] cc: Agnes Kan MD EXAMINATION: MM SCREENING [...] 05/19/24 1504 DD/ 1100 TD/TT: 05/09/24 1117 Baby Counselor: Agnes Maldonado MD IMG BI PROCEDURES Final Result * Hepatitis C Antibody with Reflex to HCV, RNA, Quantitative, Real-Time PCR (04/21/2024 7:53 AM EST) [facility] Hepatitis C Antibody Nonreactive Nonreactive [facility] Comment:Antibodies to HCV no t detected; does not exclude early acuteHCV infection. Blood Venous blood specimen / Unknown 04/21/2024 7:53 AM EST 04/21/2024 7:53 AM EST Agnes Maldonado MD LAB BLOOD ORDERAB LES Final Result [facility] [address] [place] [phone] * HIV-1/2 Antigen and Antibodies, Fourth Generation, with Reflexes (04/21/2024 7:53 AM EST) Pathologist [facility] HIV AB/AG Nonreactive Nonreactive [facility] Comment:HIV-1 p24 Ag and/or HIV-1/HIV-2 Ab not detected.A test result that is nonreactive does not exclude thepossibility of exposure to or infection with HIV-1 and/orHIV-2. Nonreactive results in this assay for individualswith prior exposure to HIV-1 and/or HIV-2 may be due toantigen and antibody levels that are below the limit ofdetection of this assay.The [employer] HIV Ag/Ab Combo assay result andsupplemental assay results should be interpreted inconjunction with the patient's clinical presentation,history and other laboratory results. If the results areinconsistent with clinical evidence, additional testing issuggested to confirm the result. Blood Venous blood specimen / Unknown 04/21/2024 7:53 AM EST 04/21/2024 7:53 AM EST Agnes Maldonado MD LAB BLOOD ORDERAB LES Final Result Performing Organization Address [facility] Co de Phone Number [facility] [address] [place] [phone] * (ABNORMAL) Lipid Panel, Standard (04/21/2024 7:53 AM EST) Triglycerides 84 <150 mg/dL [facility] Comment:Desirable Triglyceri de: less than 150 mg/dLBorderline High Triglyceride 150-199 mg/dLHigh Triglyceride: 200-499 mg/dLVery High Triglyceride: greater than or equal to 5OO mg/dL Cholesterol 197 <200 mg/dL [facility] Comment:Desirable Cholestero l: less than 200 mg/dLBorderline High Cholesterol: 200-239 mg/dLHigh Cholesterol: greater than 239 mg/dL LDL Cholesterol Calculated 137(H) <100 mg/dL [facility] Comment:Desirable LDL: less than 100 mg/dLNear Optimal/Above Optimal LDL: 110- 129 mg/dLBorderline High LDL: 130-159 mg/dLHigh LDL: 160-189 mg/dLVery High LDL: greater than or equal to 190 mg/dL HDL Cholesterol 44 >40 mg/dL [facility] Comment:Desirable HDL: great er than 40 mg/dL Note: This HDL assay may give artificially low results in patients with liver disease. Blood Venous blood specimen / Unknown 04/21/2024 7:53 AM EST 04/21/2024 7:53 AM EST us Agnes Maldonado MD LAB BLOOD ORDERAB LES Final Result Performing Organization Address [facility]/ZIP Co de Phone Number [facility] [address] [place] [phone] * THINPREP TIS PAP AND HPV mRNA E6/E7, CT/NG, TRICH (07/17/2021 12:00 AM EST) Chlamydia trachomatis RNA, TMA, Urogenital NOT DETECTED NOT DETECTED [facility] Clinical Information: None given [facility] COMMENT SEE COMMENT [facility] Comment: The analytical performance characteristics of this assay, when used to test SurePath(TM) specimens have been determined by [employer]. The modifications have not been cleared or approved by the FDA. This assay has been validated pursuant to the CLIA regulations and is used for clinical purposes. For additional information, please refer to https://Buscapé.Yub/faq/CGM859 (This link is being provided for information/ [...] has been evaluated with computer assisted technology. [facility] Travel Registered Nurse Nicu: SEE COMMENT [facility] Comment: YP, CT(ASCP) CT screening location: [place] [address] HPV nRNA E6/E7 Not Detected Not Detected [facility] Comment: Methodology: Senior Abap Developer-Mediated Amplification This assay detects E6/E7 viral messenger RNA (mRNA) from 14 high-risk HPV types (16,18,31,33,35,39,45,51,52,56,58,59,66,68). The analytical performance characteristics of this assay have been determined by [employer]. The modifications have not been cleared or approved by the FDA. This assay has been validated pursuant to the CLIA regulations and is used for clinical purposes. For additional information, please refer to http://Buscapé.Yub/faq/RWG168n2 (This link if provided for information/ educational purposes only.) Infection Fungal organisms morphologically consistent with Maryjane spp. [facility] Interpretation/Re sult: Negative for intraepithelial lesion or malignancy. [facility] LMP: NONE GIVEN [facility]OUND[facility] N [...] of this assay have been determined by [employer]. The modifications have not been cleared or approved by the FDA. This assay has been validated pursuant to the CLIA regulations and is used for clinical purposes. For additional information, please refer to http://education.Yub/ faq/Trichomonastma (This link is being provided for information/ educational purposes only.) 07/17/2021 Caryl Everett NP LAB PATHOLOGY ORDERABLES Final Result [facility] [address] from Last 3 Months or Most Recently Relevant to Health Maintenance Insurance [facility] C[place] AD[place] Care Teams Shipping And Receiving Associate Relationship Specialty Start Date End Date Agnes Kan MD [address] [place] [address] HANNAH LEO [address] PCP - General Internal Medicine 01/05/23
--- OUTSIDE RECORDS SUMMARY | 2025-02-22 12:49 | XMS_ITS | Encounter Summary ---
Author Organization [employer] Address [address] [facility] 7t [place] [address] Care Team Providers Care Professor Of Literacy Name Role Phone Agnes Kan MD Primary Care Pro vider Reason for Visit * Reason Comments Med Refill Encounter Details Date Type Department Care Team ([facility] st Contact Info) Description 02/27/2023 Refill [facility] [address] [place] [address] [facility] [address] [place] [address] Pain Social History Tobacco Use Types Packs/Day Years Used Date Smoking Tobacco: Never Passive Smoke Exposure: Never Smokeless Tobacco: Never Alcohol Use Standard Drinks/Week Comments Never 0 (1 standard drink = 0.6 oz pur e alcohol) Depression Answer Date Recorded Patient Health Questionnaire-9 Score 0 02/03/2023 Housing Stability Answer Date Recorded What is your housing situation today? I have lula gray 02/27/[address] you li ve. Do you have problems with any of the following? I am not sure 02/27/2023 Food Insecurity Answer Date Recorded Within the past 12 months, y ou worried that your food would run out before you got money to buy more: Never True 02/27/2023 Within the past 12 months,th e food you bought just didn't last and you didn't have enough money to get more: Never True 11/2022 Transportation Answer Date Recorded In the past 12 months, has l ack of transportation kept you from medical appts, meetings, work or from getting things needed for daily living? No 02/27/2023 Utilities Answer Date Recorded In the past 12 months, has t he electric, gas, oil or water company threatened to shut off services in your home? No 02/27/2023 Depression Answer Date Recorded Patient Health Questionnaire-2 Score 0 02/03/2023 Comments Unknown Sex and Gender Information Value [...] Description 03/02/2025 10:15 AM EDT Office Visit [facility] [address] [place] [address] Luis Weineraris [address] [place] [address] 04/17/2025 10:45 AM EST Office Visit [facility] [address] [place] [address] Agnes Kan MD [address] [place] [address] documented as of this encounter Visit Diagnoses Diagnosis Pain Generalized pain documented in this encounter Additional Health Concerns Assessment Noted Time PHQ-9 Depression Total Score: 0 02/04/20 10:58 AM EDT documented as of this encounter Care Teams Professor Of Literacy Relationship Specialty Start Date End Date Agnes Kan MD [address] [place] [address] PCP - General Internal Medicine 01/05/23 documented as of this encounter
--- OUTSIDE RECORDS SUMMARY | 2025-02-22 12:49 | XMS_ITS | Encounter Summary ---
Author Organization [employer] Address [address] [place] [address] 7 [place] [address] Care Team Providers Care Candy Spreader Helper Name Role Phone Agnes Kan MD Primary Care Pro vider Reason for Visit * Reason Onset Date Comments Med Refill 01/23/2025 Encounter Details Date Type Department Care Team ([facility] st Contact Info) Description 01/23/2025 Refill [facility] MEDICINE [address] [place] [address] Jackie Dent MD [address] [place] [address] Social History Tobacco Use Types Packs/Day Years [...] Description 03/02/2025 10:15 AM EDT Office Visit [facility] ADULT DENTAL [address] [place] [phone] Regine, Valentine [address] [place] [address] 04/17/2025 10:45 AM EST Office Visit [facility] MEDICINE [address] [place] [phone] Agnes Kan MD [address] [place] [phone] documented as of this encounter Visit Diagnoses Not on filedocumented in this encounter Additional Health Concerns Assessment Noted Time PHQ-9 Depression Total Score: 0 03/08/20 24 11:39 AM EDT documented as of this encounter Care Teams Candy Spreader Helper Relationship Specialty Start Date End Date Agnes Kan MD [address] [place] [phone] PCP - General Internal Medicine 01/05/23 documented as of this encounter
== END 2025-02-22 11:23 | disposition home or self-care (01) ==
LOC: HO.HGI 10:54
PROVIDERS: PCP Student in an Organized Health Care Education/Training Program; Visit Provider Internal Medicine Gastroenterology
DX: K21.00 Gastro-esophageal reflux disease with esophagitis, without bleeding (principal); K59.09 Other constipation; R10.9 Unspecified abdominal pain; R11.0 Nausea; R14.0 Abdominal distension (gaseous); E66.9 Obesity, unspecified
CPT/HCPCS: 99213

== ENCOUNTER → 2025-02-22 10:54 | Outpatient (BNVA) | payer MEDICAID, SELFPAY | PROVIDERS: PCP Student in an Organized Health Care Education/Training Program; Visit Provider Internal Medicine Gastroenterology | DX: K21.00 Gastro-esophageal reflux disease with esophagitis, without bleeding (principal); K59.04 Chronic idiopathic constipation; R10.9 Unspecified abdominal pain; R11.0 Nausea; R14.0 Abdominal distension (gaseous); E66.9 Obesity, unspecified; K21.9 Gastro-esophageal reflux disease without esophagitis | CPT/HCPCS: 99212 ==

== ENCOUNTER 2025-04-24 10:09 | Outpatient (AMB) | payer MEDICAID, SELFPAY ==
--- NOTE | 2025-04-24 10:25 | MHC.OFFVIS ---
Vital Signs 04/24/25 10:30 Height 5 ft 2 in Weight 220 lb BMI 40.2 BP 136/90 H Blood Pressure Location Rt brachial Position Sitting Respiration 16 Pulse 78 Pulse Source Pulse Oximeter Pulse Oximetry (%) 100 Oxygen Delivery Method Room Air Intake Visit Reasons: 2m Business Taxes Specialist Required: No Allergies No Known Allergies Allergy (Verified 04/24/25 10:31) HPI Comments Details: Valentine is a 44-year-old female patient following in the clinic for migraine without aura. I saw her last in follow up on 02/16/2020 at which time she has been taking verapamil 240 mg nightly for migraine prevention and rizatriptan 5 mg for her abortive therapy. She was continuing to have 2-3 headache days per week lasting typically the greater part of the day often located to the right parietal and occipital areas. She denied any light sensitivity, sound sensitivity, nausea, or dizziness. She did have a lot of tenderness trapezius muscles as well. She was seeing some minor benefit with the rizatriptan for acute therapy at the 5 mg dose. At time of last visit, I continued the verapamil but added low-dose amitriptyline (10 mg nightly) given her clear tension component. I did increase her rizatriptan from 5 mg to 10 mg prevented that she was having some benefit with the 5 and I also provided her with diclofenac gel for topical option given her trapezius muscle tenderness. She tells me today that since starting the amitriptyline 10 mg, she has seen a reduction in the headache frequency and intensity. She is averaging approximately 2 headache days per week now and they are less intense and perhaps slightly reduced in duration lasting only a few hours. She has noticed that since the amitriptyline, she has also been sleeping better. She takes amitriptyline around 18:00 and awakes at 04:00 without any residual somnolence. She is tolerating the amitriptyline well. She has been using the diclofenac gel with some benefit as well. She never did receive the prescription for rizatriptan at the higher dose and therefore she has still been taking the 5 mg with some benefit. [facility] Medical History (Updated 04/24/25 @ 10:57 by Linda Green CNP) Migraine Obesity (BMI 35.0-39.9 without comorbidity) Iron deficiency anemia due to chronic blood loss Chronic constipation GERD with esophagitis Surgical History Hx of colonoscopy History of esophagogastroduodenoscopy (EGD) (~11/2017) Family History Paternal Grandmother Stomach cancer Social History Household Members: Spouse and Children Alcohol intake: never Patient Tobacco Use Status: Never used Tobacco Review of Systems Const All systems reviewed & are unremarkable except as noted in HPI and below Physical Exam Vital Signs: Last Vital Signs Pulse 78 04/24/25 10:30 Resp 16 04/24/25 10:30 BP 136/90 H 04/24/25 10:30 Pulse Ox 100 04/24/25 10:30 Oxygen Delivery Method Room Air 04/24/25 10:30 BMI result Body Mass Index 40.2 Const General: cooperative, healthy appearing, comfortable and no acute distress Nutritional Appearance: well nourished Orientation/consciousness: patient oriented x3 Limitations: no limitations HEENT Head: Yes normal to inspection and Yes normocephalic Eyes General: appearance normal, both eyes and all related structures Visual Francis: normal visual francis by confrontation Alignment and Position: alignment normal Periorbital: periorbital findings normal Eyelids: Yes eyelids normal Conjunctivae: conjunctivae normal Sclerae: sclerae normal Neck Neck: Yes normal visual inspection and Yes full ROM Back/Spine/Pelvis Other: Bilateral upper trapezius tightening and some tenderness with palpation bilaterally to the upper trapezius muscles. Neuro General: patient oriented x3 and deep tendon reflexes 2+ bilaterally Cranial nerves: Yes CN's II-XII intact bilaterally and Yes Facial sensation intact/muscles of mastication intact Cognition (Neuro): normal cognition Gait exam (Neuro): Normal gait present Motor exam (neuro): 5/5 motor strength present throughout and no tremor noted Sensory Exam: double simultaneous stimulation for sensation normal Romberg Test: Negative Pupils: Normal pupillary reactivity/response: bilateral Psych Appearance: grossly normal Mental Status: mental status grossly normal Speech and movement: Normal speech and movement present and Clear speech present Affect: normal affect Attitude: cooperative Thought process: Normal thought process present Thought content: Normal thought content present Insight: Good insight present (Psych) Judgement: Good judgement present (Psych) Assessment & Plan Assessment & Plan (1) Migraine without aura and without status migrainosus, not intractable: Code(s): G43.009 - Migraine without aura, not intractable, without status migrainosus Category: Medical (2) Chronic tension type headache: Code(s): G44.229 - Chronic tension-type headache, not intractable Category: Medical Plan Valentine is a 44-year-old female patient following in the clinic for migraine without aura. Headaches are better controlled with amitriptyline 10 mg and she is tolerating the dose well. I will increase her from 10 mg to 20 mg nightly. He will also send for the higher dose of rizatriptan as planned at this visit. She can continue topical diclofenac gel. I will also continue the verapamil that she was on previously. -continue verapamil 240 mg nightly -increase amitriptyline from 10 mg nightly to 20 mg nightly -increase dose of rizatriptan from 5 mg to 10 mg as planned at last visit -continue use of diclofenac gel topically -if she continues to have significant myofascial tenderness, could consider trigger point injections moving forward if she does not have significant improvement with the higher dose of amitriptyline -follow up in 3 months or sooner if needed Medications: New rizatriptan take 1 tab at onset of headache; if no relief may repeat 1 tab after at least 2 hrs; max = 3 tabs/24 hr PO 14 tabs 5RF Changed From amitriptyline 10 mg PO BEDTIME 30 tabs 4RF To amitriptyline 20 mg (2 x 10 mg) PO BEDTIME 180 tabs 3RF 90 days Coding Level of Care Code Est Pt Level 4 (82639) Diagnoses Migraine without aura and without status migrainosus, not intractable G43.009 Chronic tension type headache G44.229
[2025-04-24 10:30] VITALS: BP 136/90; PULSE 78; RESP 16; O2SAT 100; BMI 40.2
--- OUTSIDE RECORDS SUMMARY | 2025-04-24 11:34 | XMS_ITS | Clinical Summary ---
Author Organization [employer] Address [address] [place] [address] Care Team Providers Care High School Music Director Name Role Phone Agnes Kan MD Primary Care Pro vider Allergies No known active allergies Medications dicyclomine (Bentyl) 20 MG tablet Take 20 [...] day. 90 tablet 04/28/20 24 025 Active amitriptyline (Elavil) 10 MG tablet Take 10 mg by mouth at bedtime. 02/16/20 25 Active Diclofenac Sodium 1 % gel PLEASE SEE ATTACHED FOR DETAILED DIRECTIONS 02/16/20 25 Active rizatriptan (Maxalt) 10 MG tablet Take 10 mg by mouth 1 (one) time if needed for migraine. May repeat in 2 hours if unresolved. Do not exceed 30 mg in 24 hours. Active cholecalcifer ol VITAMIN D (Vitamin D-3) 50 MCG (1999 UT) capsule TAKE 1 CAPSULE (50 MCG) BY MOUTH IN THE MORNING 90 capsule 04/23/20 25 Active losartan (Cozaar) 25 MG tablet TAKE 1 TABLET BY MOUTH EVERY DAY 90 tablet 04/23/20 25 Active rizatriptan (Maxalt) 5 MG tablet 01/24/20 23 025 Discontinued(O ther) Magnesium Extra Strength 400 MG capsule TAKE 1 CAPSULE BY MOUTH EVERY DAY IN THE MORNING 90 capsule 05/15/20 24 025 Discontinued(O ther) buPROPion SR (Wellbutrin SR) 100 MG 12 hr tablet Take 1 tablet (100 mg) by mouth 2 times daily. Do not crush, chew, or split. 60 tablet 2 10/20/19 25 025 Discontinued(O ther) losartan (Cozaar) 25 MG tablet Take 1 tablet (25 mg) by mouth Once per day. 90 tablet 01/24/20 25 025 Discontinued(R eorder (will not trigger notification to Pharmacy)) cholecalcifer ol VITAMIN D (Vitamin D-3) 50 MCG (1999 UT) capsule TAKE 1 CAPSULE (50 MCG) BY MOUTH IN THE MORNING 90 capsule 01/24/20 25 025 Discontinued GaviLAX 17 GM/SCOOP powder PLEASE SEE ATTACHED FOR DETAILED DIRECTIONS 11/09/19 025 Discontinued(O ther) Active Problems Problem Noted Date Diagnosed Date Localized gingival recession 03/02/2025 Dental calculus 12/28/2023 Dental caries 12/28/2023 Gingival [...] Encounters Date Type Department Care Team Description 04/21/2025 Refill [facility] [address] [place] [address] Agnes Kan MD 04/20/2025 Refill [facility] [place] [address] Agnes Kan MD 04/18/2025 8:00 AM EST Office Visit [facility] [address] [facility] [place] [address] J Carlos Cabrera DDS Dental caries (Primary Dx) 04/17/2025 10:45 AM EST Office Visit [facility] [place] [address] Agnes Kan MD Annual physical exam (Primary Dx); Hyperlipidemia, unspecified hyperlipidemia type; Hypertension, unspecified type; Class 2 obesity due to excess calories without serious comorbidity with body mass index (BMI) of 39.0 to 39.9 in adult; Health care maintenance; Other migraine without status migrainosus, not intractable 04/17/2025 Travel 04/16/2025 Telephone [facility] [place] [address] Agnes Kan MD chart prep 04/11/2025 Travel 04/10/2025 Travel 04/09/2025 Patient Outreach [facility] [place] [address] Agnes Kan MD Pre-visit Planning (SDOH screening was completed on 10/10/2024) 03/05/2025 1:30 PM EDT Office Visit [facility] [address] [facility] [place] [address] J Carlos Cabrera DDS Dental caries (Primary Dx) 03/02/2025 10:15 AM EDT Office Visit [facility] [address] [facility] [place] [address] Valentine Weiner Dental calculus (Primary Dx); Localized gingival recession; Dental caries 03/02/2025 Travel 02/23/2025 Travel 01/23/2025 Refill [facility] [place] [address] Jackie Dent MD 01/23/2025 Refill [facility] [address] [place] [address] Jackie Dent MD 01/23/2025 Refill [facility] [address] [place] [address] Agnes Kan MD from Last 3 Months Immunizations Immunization [...] drink = 0.6 oz pur e alcohol) Alcohol Answer Date Recorded How often do you have a drink containing alcohol ? 0 04/18/2025 How many drinks containing a lcohol do you have on a typical day when you are drinking? 0 04/18/2025 How often do you have six or more drinks on one occasion? 0 04/18/2025 Depression Answer Date Recorded Patient Health Questionnaire-9 Score 2 04/17/2025 Patient Health Questionnaire-9 Score 2 04/17/2025 Last PHQ-9: Questionnaire Data Not on file 1 06/17/2024 Housing Stability Answer Date Recorded What is your housing situation today? I have lula sing 10/22/[address] you li [...] Date Recorded Patient Health Questionnaire-2 Score 0 04/17/2025 Internet Access Answer Date Recorded Internet Access Q1 Yes 10/10/2024 Internet Access Q2 Not on file 10/10/2024 Comments No Sex and Gender Information Value Date Recorded Sex Assigned at Female 03/23/2022 10:18 AM EDT Legal Sex Female 10:18 AM EDT Gender Identity Female 03/23/2022 10:18 AM EDT Sexual Orientation Straight 03/23/2022 10 :18 AM EDT Last Filed Vital Signs Vital Sign Reading Time Taken Comments Blood Pressure 136/74 04/18/2025 8:06 AM EST Pulse 70 04/18/2025 8:06 AM EST Temperature 36.3 C (97.3 F) 04/17/2025 10:59 AM EST Respiratory Rate 16 04/17/2025 10:59 AM EST Oxygen Saturation 99% 04/17/2025 10:59 AM EST Inhaled Oxygen Concentration - - Weight 99.3 kg (219 lb) 04/17/2025 10:59 AM EST Height 157.5 cm (5' 2 ) 04/17/2025 10:59 AM EST Body Mass Index 40.06 04/17/2025 10:59 AM EST Plan of Treatment Upcoming Encounters Date Type Department Care Team (Late st Contact Info) Description 07/17/2025 10:00 AM EST Office Visit [facility] [address] [place] [phone] Agnes Kan MD [address] [place], [place] [phone] 09/11/2025 9:30 AM EDT Office Visit [facility] [address] [place] [address] Valentine Weiner [address] [place] [address] Health Maintenance Due Date Last Done Comments CT Colonography 1979 FIT DNA/Cologuard 1979 FIT 1979 FOBT 1980 Sigmoidoscopy 1980 Family Planning (PISQ) 08/15/1994 HPV Vaccines (1 - 3-dose series) 08/15/1994 COVID-19 Vaccine (3 - season) 2025 01/15/2021, 12/25/2020 Influenza Vaccine (#1) 2025 04/25/2010 Dental Oral Exam 09/01/2025 03/02/2025, 12/28/2023 Dental Prophylaxis 09/01/2025 03/02/2025, 0 07/11/2024, 12/28/2023, Additional history exists SDOH Screening 10/10/2025 10/10/2024 Disability Screening 10/18/2025 10/18/2024 Dental X-Ray: Bitewings 03/03/2026 03/02/20, 04/19/2024, 02/16/2024, Additional history exists Alcohol/Substance Use Screening 04/17/2026 04/17/2025 Depression Screening 04/17/2026 04/17/2025, 04/17/20 Tobacco Screening 04/17/2026 04/17/2025 Mammogram 05/09/2026 05/09/2024, 03/25, 06/17/2020 Cervical Cancer Screening 07/17/2026 HPV/Cotest 07/17/2026 07/17/2021 Pap Smear 07/17/2026 07/17/2021 Dental X-Ray: Full Mouth 12/28/2026 12/28/2023 Lipid Panel 04/21/2029 04/21/2024, 06/24, 02/27/2023 Zoster Vaccines (1 of 2) 08/15/2029 DTaP/Tdap/Td Vaccines (2 - Td or Tdap) 09/08/2033 09/09/2023, 10/05/2007 Colonoscopy 12/15/2034 12/15/2024 Colorectal Cancer Screening 12/15/2034 RSV Patients and Patients Aged 60 years or older (1 - 1-dose 75+ series) 08/15/2054 Hepatitis B Vaccines Completed 03/15/2007, 11/16/2006, 10/13/2006 HIV Screening Completed 04/21/2024, 02/27/2023 Hepatitis C Screening Completed 04/21/2024, 023 HIB Vaccines Aged Out No longer eligi [...] 49) Years Aged Out No longer eligible based on patient's age to complete this topic RSV under 20 months Aged Out No longe r eligible based on patient's age to complete this topic Rotavirus Vaccines Aged Out No longer eligible based on patient's age to complete this topic Procedures Procedure Name Priority Date/Time Associated Diagnosis Comments CASE PRESENTATION, DETAILED AND EXTENSIVE TREATMENT PLANNING Routine 04/18/2025 8:00 AM EST 13 DO RESIN-BASED COMPOSITE - 2 SURF, POSTERIOR Routine 04/18/2025 8:00 AM EST 19 MO RESIN-BASED COMPOSITE - 2 SURF, POSTERIOR Routine 04/18/2025 8:00 AM EST CASE PRESENTATION, DETAILED AND EXTENSIVE TREATMENT PLANNING Routine 03/05/2025 1:30 PM EDT 4 MO RESIN-BASED COMPOSITE - 2 SURF, POSTERIOR Routine 03/05/2025 1:30 PM EDT 7 L RESIN-BASED COMPOSITE - 1 SURF, ANTERIOR Routine 03/05/2025 1:30 PM EDT PERIODIC ORAL EVALUATION - ESTABLISHED PATIENT Routine 03/02/2025 10:15 AM EDT ORAL HYGIENE INSTRUCTIONS Routine 03/02/2025 10:15 AM EDT CASE PRESENTATION, DETAILED AND EXTENSIVE TREATMENT PLANNING Routine 03/02/2025 10:15 AM EDT Dental calculus Localized gingival recession Dental caries PROPHYLAXIS - ADULT Routine 03/02/2025 1 0:15 AM EDT Dental calculus INTRAORAL - PERIAPICAL EACH ADDITIONAL RADIOGRAPHIC IMAGE Routine 03/02/2025 10:15 AM EDT Dental calculus Localized gingival recession Dental caries INTRAORAL - PERIAPICAL FIRST RADIOGRAPHIC IMAGE Routine 03/02/2025 10:15 AM EDT Dental calculus Localized gingival recession Dental caries BITEWINGS - 4 RADIOGRAPHIC IMAGES Routine 03/02/2025 10:15 AM EDT Dental calculus Localized gingival recession Dental caries BI MAMMOGRAM SCREENING TOMOSYNTHESIS BILATERAL Routine 05/09/2024 11:00 AM EST HEPATITIS C AB W/REFL TO HCV RNA, QN, PCR Routine 04/21/2024 7:53 AM EST Annual physical exam HIV 1/2 ANTIGEN/ANTIBODY, FOURTH GENERATION W/RFL Routine 04/21/2024 7:53 AM EST Annual physical exam LIPID PANEL, STANDARD Routine 04/21/2024 7:53 AM EST Annual physical exam INTRAORAL - COMPLETE SERIES OF RADIOGRAPHIC IMAGES [...] Narrative 05/19/2024 3:07 PM EST [facility] [address] [place] [address] Mammography Report Signed Patient: Valentine Victoria MR#: [id number] : 1980 Acct:[id number] Age/Sex: 43 / F ADM Date: 05/09/24 Loc: [facility] Attending Dr: Agnes Maldonado MD Ordering Physician: Agnes Kan MD sults: 1Negative Date of Service: 05/09/24 Follow Up: 1 Year From Orig inal Mammogram Procedure(s): MM tomosynthesis screening BI Accession Number(s): [id number] cc: Agnes Kan MD EXAMINATION: MM SCREENING [...] by: Ria Watson DO 05/19/2024 03:04 PM [facility] Dictated By: Ria Watson DO Signed By: <Electronically signed by Ria Watson DO in OV> 05/19/24 1504 DD/ 1100 TD/TT: 05/09/24 1117 Coal Loader: Procedure Note Donotuseinterpreter, Image - 05/19/2024 [facility] [address] [place] [address] Mammography Report Signed Patient: Valentine Victoria#: [id number] : 1980Acct:[id number] Age/Sex: 43 / FADM Date: 05/09/24 Loc: HO.MAMMO Attending Dr: Agnes Maldonado MD Ordering Physician: Agnes Kan sults: 1Negative Date of Service: 05/09/24Follow Up: 1 Year From Orig inal Mammogram Procedure(s): MM tomosynthesis screening BI Accession Number(s): [id number] cc: Agnes Kan MD EXAMINATION: MM SCREENING [...] 05/19/24 1504 DD/ 1100 TD/TT: 05/09/24 1117 Coal Loader: us Agnes Maldonado MD IMG BI PROCEDURES Final Result * Hepatitis C Antibody with Reflex to HCV, RNA, Quantitative, Real-Time PCR (04/21/2024 7:53 AM EST) Pathologist [facility] Hepatitis C Antibody Nonreactive Nonreactive [facility] Comment:Antibodies to HCV no t detected; does not exclude early acuteHCV infection. Blood Venous blood specimen / Unknown 04/21/2024 7:53 AM EST 04/21/2024 7:53 AM EST Agnes Maldonado MD LAB BLOOD ORDERAB LES Final Result [facility] [address] [place] [phone] * HIV-1/2 Antigen and Antibodies, Fourth Generation, with Reflexes (04/21/2024 7:53 AM EST) Pathologist [facility] HIV AB/AG Nonreactive Nonreactive [facility] Comment:HIV-1 p24 Ag and/or HIV-1/HIV-2 Ab not detected.A test result that is nonreactive does not exclude thepossibility of exposure to or infection with HIV-1 and/orHIV-2. Nonreactive results in this assay for individualswith prior exposure to HIV-1 and/or HIV-2 may be due toantigen and antibody levels that are below the limit ofdetection of this assay.The Respi HIV Ag/Ab Combo assay result andsupplemental assay results should be interpreted inconjunction with the patient's clinical presentation,history and other laboratory results. If the results areinconsistent with clinical evidence, additional testing issuggested to confirm the result. Blood Venous blood specimen / Unknown 04/21/2024 7:53 AM EST 04/21/2024 7:53 AM EST us Agnes Maldonado MD LAB BLOOD ORDERAB LES Final Result [facility] [address] [place] [phone] * (ABNORMAL) Lipid Panel, Standard (04/21/2024 7:53 AM EST) Triglycerides 84 <150 mg/dL [facility] Comment:Desirable Triglyceri de: less than 150 mg/dLBorderline High Triglyceride 150-199 mg/dLHigh Triglyceride: 200-499 mg/dLVery High Triglyceride: greater than or equal to 5OO mg/dL Cholesterol 197 <200 mg/dL [facility] Comment:Desirable Cholestero l: less than 200 mg/dLBorderline High Cholesterol: 200-239 mg/dLHigh Cholesterol: greater than 239 mg/dL LDL Cholesterol Calculated 137(H) <100 mg/dL [facility] Comment:Desirable LDL: less than 100 mg/dLNear Optimal/Above Optimal LDL: 110- 129 mg/dLBorderline High LDL: 130-159 mg/dLHigh LDL: 160-189 mg/dLVery High LDL: greater than or equal to 190 mg/dL HDL Cholesterol 44 >40 mg/dL [facility] Comment:Desirable HDL: great er than 40 mg/dL Note: This HDL assay may give artificially low results in patients with liver disease. Blood Venous blood specimen / Unknown 04/21/2024 7:53 AM EST 04/21/2024 7:53 AM EST Agnes Maldonado MD LAB BLOOD ORDERAB LES Final Result [facility] [address] [place] [phone] * THINPREP TIS PAP AND HPV mRNA E6/E7, CT/NG, TRICH (07/17/2021 12:00 AM EST) Chlamydia trachomatis RNA, TMA, Urogenital NOT DETECTED NOT DETECTED [facility] Clinical Information: None given [facility] COMMENT SEE COMMENT [facility] Comment: The analytical performance characteristics of this assay, when used to test SurePath(TM) specimens have been determined by [facility] [facility]. The modifications have not been cleared or approved by the FDA. This assay has been validated pursuant to the CLIA regulations and is used for clinical purposes. For additional information, please refer to https://education.[employer]/faq/RKJ626 (This link is being provided for information/ [...] along with historic and current clinical information. Comment: This Pap test has been evaluated with computer assisted technology. [facility] Tower Hoist Operator: SEE COMMENT [facility] Comment: YP, CT(ASCP) CT screening location: [address] [address] HPV nRNA E6/E7 Not Detected Not Detected [facility] Comment: Methodology: Accounting System Expert-Mediated Amplification This assay detects E6/E7 viral messenger RNA (mRNA) from 14 high-risk HPV types (16,18,31,33,35,39,45,51,52,56,58,59,66,68). The analytical performance characteristics of this assay have been determined by [facility]. The modifications have not been cleared or approved by the FDA. This assay has been validated pursuant to the CLIA regulations and is used for clinical purposes. For additional information, please refer to http://GoHome.[employer]/faq/SAP682y1 (This link if provided for information/ educational [...] of this assay have been determined by [facility]. The modifications have not been cleared or approved by the FDA. This assay has been validated pursuant to the CLIA regulations and is used for clinical purposes. For additional information, please refer to http://GoHome.[employer]/ faq/Trichomonastma (This link is being provided for information/ educational purposes only.) 07/17/2021 us Caryl Everett NP LAB PATHOLOGY ORDERABLES Final Result [facility] [address] from Last 3 Months or Most Recently Relevant to Health Maintenance Insurance [facility] C3 DENTAL-[facility] MEDICAID STAND ADULT Care Teams High School Music Director Relationship Specialty Start Date End Date Agnes Kan MD [address] [place] [phone] PCP - General Internal Medicine 01/05/23
--- OUTSIDE RECORDS SUMMARY | 2025-04-24 11:34 | XMS_ITS | Encounter Summary ---
Author Organization [employer] Address [address] [place] [address] [address] [place] [address] Care Team Providers Care Dross Skimmer Name Role Phone Agnes Kan MD Primary Care Pro vider Reason for Visit * Reason Onset Date Comments Med Refill 01/23/2025 Encounter Details Date Type Department Care Team ([facility] st Contact Info) Description 01/23/2025 Refill [facility] [address] [place] [address] Jackie Dent MD [address] [place] [address] Social History Tobacco Use Types Packs/Day Years [...] Description 07/17/2025 10:00 AM EST Office Visit [facility] [address] [place] [address] Agnes Kan MD [address] [place] [address] 09/11/2025 9:30 AM EDT Office Visit [facility] [address] [place] [address] Regine, Valentine [address] [place] [address] documented as of this encounter Visit Diagnoses Not on filedocumented in this encounter Additional Health Concerns Assessment Noted Time PHQ-9 Depression Total Score: 0 03/08/20 11:39 AM EDT documented as of this encounter Care Teams Dross Skimmer Relationship Specialty Start Date End Date Agnes Kan MD [address] [place] [phone] PCP - General Internal Medicine 01/05/23 documented as of this encounter
--- OUTSIDE RECORDS SUMMARY | 2025-04-24 11:34 | XMS_ITS | Encounter Summary ---
Author Organization [employer] Address [address] [facility] 7t [place] [address] Care Team Providers Care Tow Driver Name Role Phone Agnes Kan MD Primary Care Pro vider Reason for Visit * Reason Comments Med Refill Encounter Details Date Type Department Care Team ([facility] Contact Info) Description 02/27/2023 Refill [facility] MED[facility]INE 230 [place] [address] [facility] 230 [place] [address] Pain Social History Tobacco Use Types Packs/Day [...] Description 07/17/2025 10:00 AM EST Office Visit [facility] MED[facility]INE 230 [place] [address] Agnes Kan MD [address] [place] [address] 09/11/2025 9:30 AM EDT Office Visit [facility] ADULT DENTAL 230 [place] [address] Regine, Valentine 230 [place] [address] documented as of this encounter Visit Diagnoses Diagnosis Pain Generalized pain documented in this encounter Additional Health Concerns Assessment Noted Time PHQ-9 Depression Total Score: 0 02/04/20 10:58 AM EDT documented as of this encounter Care Teams Tow Driver Relationship Specialty Start Date End Date Agnes Kan MD [address] [place] [phone] PCP - General Internal Medicine 01/05/23 documented as of this encounter
--- OUTSIDE RECORDS SUMMARY | 2025-04-24 11:34 | XMS_ITS | Encounter Summary ---
Author Organization [employer] Address [address] [place] [address] Care Team Providers Care Angle Shearer Name Role Phone Agnes Kan MD Primary Care Pro vider Reason for Visit * Reason Comments Med Refill Encounter Details Date Type Department Care Team ([facility] Contact Info) Description 04/20/2025 Refill [facility] MEDICINE 230 [place] [address] Agnes Kan MD 230 [place] [address] Social History Tobacco Use Types Packs/Day Years [...] Description 07/17/2025 10:00 AM EST Office Visit [facility] MEDICINE [address] [place] [address] Agnes Kan MD [address] [place] [phone] 09/11/2025 9:30 AM EDT Office Visit [facility] ADULT DENTAL [address] [place] [address] Valentine Weiner [address] [place] [address] documented as of this encounter Visit Diagnoses Not on filedocumented in this encounter Additional Health Concerns Assessment Noted Time PHQ-9 Depression Total Score: 2 04/17/20 11:01 AM EST documented as of this encounter Care Teams Angle Shearer Relationship Specialty Start Date End Date Agnes Kan MD [address] [place] [phone] PCP - General Internal Medicine 01/05/23 documented as of this encounter
--- OUTSIDE RECORDS SUMMARY | 2025-04-24 11:34 | XMS_ITS | Encounter Summary ---
Author Organization [employer] Address [address] [place] [address] Care Team Providers Care Licensed Bondsman Name Role Phone Agnes Kan MD Primary Care Pro vider Reason for Visit * Reason Comments Med Refill Encounter Details Date Type Department Care Team ([facility] Contact Info) Description 04/21/[address] [facility] MEDICINE 230 [place] [address] Agnes Kan MD 230 [place] [address] Social History Tobacco Use Types Packs/Day Years [...] Description 07/17/2025 10:00 AM EST Office Visit [facility] MEDICINE [address] [place] [address] Agnes Kan MD [address] [place] [address] 09/11/2025 9:30 AM EDT Office Visit [facility] ADULT DENTAL 230 [place] [address] Valentine Weiner 230 [place] [address] documented as of this encounter Visit Diagnoses Not on filedocumented in this encounter Additional Health Concerns Assessment Noted Time PHQ-9 Depression Total Score: 2 04/17/20 11:01 AM EST documented as of this encounter Care Teams Licensed Bondsman Relationship Specialty Start Date End Date Agnes Kan MD [address] [place] [address] PCP - General Internal Medicine 01/05/23 documented as of this encounter
--- OUTSIDE RECORDS SUMMARY | 2025-04-24 11:34 | XMS_ITS | Encounter Summary ---
Author Organization [employer] Address [address] [place] [address] 7 [place] [address] Care Team Providers Care Fiscal Manager Name Role Phone Agnes Kan MD Primary Care Pro vider Reason for Visit * Reason Onset Date Comments Med Refill 01/23/2025 Encounter Details Date Type Department Care Team ([facility] st Contact Info) Description 01/23/2025 Refill [facility] MEDICINE 230 [place] [address] Jackie Dent MD 230 [place] [address] Social History Tobacco Use Types Packs/Day Years [...] your housing situation today? I have lula rgay 10/22/[address] you li [...] Description 07/17/2025 10:00 AM EST Office Visit [facility] MEDICINE 230 [place] [address] Agnes Kan MD 230 [place] [address] 09/11/2025 9:30 AM EDT Office Visit [facility] ADULT DENTAL 230 [place] [address] Regine, Valentine 230 [place] [address] documented as of this encounter Visit Diagnoses Not on filedocumented in this encounter Additional Health Concerns Assessment Noted Time PHQ-9 Depression Total Score: 0 03/08/20 11:39 AM EDT documented as of this encounter Care Teams Fiscal Manager Relationship Specialty Start Date End Date Agnes Kan MD [address] [place] [address] PCP - General Internal Medicine 01/05/23 documented as of this encounter
== END 2025-04-24 10:49 | disposition home or self-care (01) ==
LOC: HO.HSM 10:09
PROVIDERS: PCP Student in an Organized Health Care Education/Training Program; Visit Provider Nurse Practitioner
DX: G43.009 Migraine without aura, not intractable, without status migrainosus (principal); G44.229 Chronic tension-type headache, not intractable
CPT/HCPCS: 99214

== ENCOUNTER → 2025-04-24 10:09 | Outpatient (BNVA) | payer MEDICAID, SELFPAY | PROVIDERS: PCP Student in an Organized Health Care Education/Training Program; Visit Provider Nurse Practitioner | DX: G43.009 Migraine without aura, not intractable, without status migrainosus (principal); G44.229 Chronic tension-type headache, not intractable; Z79.899 Other long term (current) drug therapy | CPT/HCPCS: 99212 ==

== ENCOUNTER 2025-05-18 07:38 | Outpatient (REF) | payer MEDICAID, SELFPAY ==
--- NOTE | ~2025-05-18 | US_ITS ---
EXAMINATION: US ABDOMEN LIMITED WITH LIVER ELASTOGRAPHY HISTORY: E66.9 - Obesity, unspecified TECHNIQUE: Real-time grayscale ultrasound imaging of the right upper quadrant was performed and images were reviewed. COMPARISON: Comparison is made with the prior examination dated 01/02/2019. FINDINGS: Liver: The right lobe of the liver measures 15.2 cm in size. The left lobe of the liver measures 9.2 cm in size. The liver demonstrates normal homogeneous echotexture. No focal mass or intrahepatic biliary ductal dilatation is identified. There is normal hepatopedal flow in the portal vein. Ultrasound elastography of the liver was performed with 10 separate measurements of the liver parenchyma with the patient in the supine position. Measurements were obtained approximately 2 cm below Vladimir's capsule and perpendicular to the capsule. The median shear wave velocity is 1.57 m/s. The interquartile range/median (IQR/median) is 0.06. Gallbladder and biliary tree: The gallbladder is unremarkable, without evidence of calculi, wall thickening, or pericholecystic fluid. There is no sonographic Bolton sign. The common bile duct is normal in caliber measuring 3 mm in diameter. Right Kidney: The right kidney measures 10.2 cm in length. The right kidney is unremarkable, without evidence of masses, hydronephrosis, or calculi. Pancreas: The pancreatic head, neck, and body are unremarkable. The pancreatic tail is obscured by bowel gas. Abdominal aorta and inferior vena cava: The visualized portions of the abdominal aorta and inferior vena cava are normal in caliber. There is no free fluid in the right upper quadrant. US/US abdomen purvis w elastography IMPRESSION: Unremarkable right upper quadrant ultrasound. The median shear wave velocity in the liver is 1.57 m/s, corresponding to a median liver stiffness of 7.28 kPa. The IQR/median value is 0.06. This is indicative of a quality data set. Findings are indicative of a low elastography value which rules out advanced chronic liver disease in asymptomatic patients. REFERENCE: Society of Radiologists in Ultrasound Liver Stiffness Thresholds (2020): LIVER STIFFNESS THRESHOLDS: *Shear wave velocity less than 1.3 m/s (Liver Stiffness equal or less than 5 kPa): High probability of being normal. *Shear wave velocity less than 1.7 m/s (Liver Stiffness less than 9 kPa): In the absence of other known clinical signs, rules out compensated advanced chronic liver disease. *Shear wave velocity between 1.7-2.1 m/s (Liver Stiffness 9-13 kPa): Suggestive of compensated advanced chronic liver disease but need further test for confirmation. *Shear wave velocity between 2.1-2.4 m/s (Liver Stiffness 13-17 kPa): Rules in compensated advanced chronic liver disease. *Shear wave velocity greater than 2.4 m/s (Liver Stiffness over 17 kPa): Suggestive of clinically significant portal hypertension. QUALITY OF DATA SET: *IQR/Median value equal or less than 0.15 implies a quality data set. *IQR/Median value over 0.15 implies a poor quality data set. SIGNIFICANT CHANGE FROM PRIOR EXAM: Significant change if liver stiffness measurement is 10% or greater from prior exam. OTHER CONSIDERATIONS: The stage of liver fibrosis may be overestimated in the setting of acute hepatitis, liver inflammation, elevated liver function tests, hepatic vascular congestion, obstructive cholestasis, non-fasting state, and infiltrative diseases such as amyloidosis and lymphoma. In some patients with NAFLD, the liver stiffness thresholds for compensated advanced chronic liver disease may be lower. In causes other than viral hepatitis and NAFLD, liver stiffness thresholds are not well established. Electronically signed by: Bright Live MD 05/18/2025 08:25 AM [facility]
--- OUTSIDE RECORDS SUMMARY | 2025-05-18 07:40 | XMS_ITS | Clinical Summary ---
Author Organization [employer] Address [address] [facility] 7t [place] [address] Care Team Providers Care Senior Advisory Name Role Phone Agnes Kan MD Primary [...] Once per day. 90 tablet 04/28/20 24 Active amitriptyline (Elavil) 10 MG tablet Take [...] ol VITAMIN D (Vitamin D-3) 50 MCG (2000 UT) capsule TAKE 1 CAPSULE (50 MCG) BY MOUTH IN THE MORNING 90 capsule 04/23/20 25 Active losartan (Cozaar) 25 MG tablet TAKE 1 TABLET BY MOUTH EVERY DAY 90 tablet 04/23/20 25 Active losartan (Cozaar) 25 MG tablet Take 1 tablet (25 mg) by mouth Once per day. 90 tablet 01/24/20 25 025 Discontinued(R eorder (will not trigger notification to Pharmacy)) cholecalcifer ol VITAMIN D (Vitamin D-3) 50 MCG (1999 UT) capsule TAKE 1 CAPSULE (50 MCG) BY MOUTH IN THE MORNING 90 capsule 01/24/20 25 025 Discontinued Active Problems Problem Noted Date Diagnosed Date [...] Encounters Date Type Department Care Team Description 05/08/2025 Telephone [facility] MEDICINE [address] [place] [address] Agnes Kan MD BP log faxed 05/01/2025 Telephone [facility] MED[facility]INE [address] [place] [address] Agnes Kan MD Prior Authorization 05/01/2025 Orders Only [facility] MED[facility]INE [address] [place] [address] Agnes Kan MD 04/21/2025 Refill [facility] MED[facility]INE [address] [place] [address] Agnes Kan MD 04/20/2025 Refill [facility] MEDICINE [address] [place] [address], [place] [address] Agnes Kan MD 04/18/2025 8:00 AM EST Office Visit [facility] ADULT D[facility]AL [address] [facility] [place] [address] J Carlos Cabrera DDS Dental caries (Primary Dx) 04/17/2025 10:45 AM EST Office Visit [address] [address] Agnes Kan MD Annual physical exam (Primary Dx); Hyperlipidemia, unspecified hyperlipidemia type; Hypertension, unspecified type; Class 2 obesity due to excess calories without serious comorbidity with body mass index (BMI) of 39.0 to 39.9 in adult; Health care maintenance; Other migraine without status migrainosus, not intractable 04/17/2025 Travel 04/16/[address] [address] Agnes Kan MD chart prep 04/11/2025 Travel 04/10/2025 Travel 04/09/2025 Patient Outreach [address] [address] Agnes Kan MD Pre-visit Planning (SDOH screening was completed on 10/10/2024) 03/05/2025 1:30 PM EDT Office Visit [facility] ADULT DENTAL 230 [place] [address] J Carlos Cabrera DDS Dental caries (Primary Dx) 03/02/2025 10:15 AM EDT Office Visit [facility] ADULT DENTAL [address] [place] [address] Valentine Weiner Dental calculus (Primary Dx); Localized gingival recession; Dental caries 03/02/2025 Travel 02/23/2025 Travel from Last 3 Months Immunizations Immunization [...] Description 07/17/2025 10:00 AM EST Office Visit [facility] MEDICINE [address] [place] [address] Agnes Kan MD 230 [place] [address] 09/11/2025 9:30 AM EDT Office Visit [facility] ADULT DENTAL [address] [place] [address] RegineValentine [address] [place] [address] Health Maintenance Due Date Last Done Comments CT Colonography 1979 FIT DNA/Cologuard 1979 FIT 1979 FOBT 1979 Sigmoidoscopy 1980 Family Planning (PISQ) 08/15/1994 HPV Vaccines (1 - 3-dose series) 08/15/1994 COVID-19 Vaccine ( - season) 2025 01/15/2021, 12/25/2020 Influenza Vaccine [...] AM EST Narrative 05/19/2024 3:07 PM EST [facility] [address] [place], [place] [address] Mammography Report Signed Patient: Valentine Victoria MR#: [id number] : 1980 Acct:[id number] Age/Sex: 43 / F ADM Date: 05/09/24 Loc: HO.MAMMO Attending Dr: Agnes Maldonado MD Ordering Physician: Agnes Kan MD Re sults: 1Negative Date of Service: 05/09/24 Follow Up: 1 Year From [facility] ina Mammogram Procedure(s): MM tomosynthesis screening BI Accession Number(s): [id number] cc: Agnes Kan MD EXAMINATION: MM SCREENING [...] 05/19/24 1504 DD/ 1100 TD/TT: 05/09/24 1117 Internal Controls Analyst: Procedure Note Donotuseinterpreter, Image - 05/19/2024 [facility] [address] [place] [address] Mammography Report Signed Patient: Valentine VictoriaMR#: [id number] : 1980Acct:[id number] Age/Sex: 43 / FADM Date: 05/09/24 Loc: CHIKA Attending Dr: Agnes Maldonado MD Ordering Physician: Agnes Kan sults: 1Negative Date of Service: 05/09/24Follow Up: 1 Year From Orig inal Mammogram Procedure(s): MM tomosynthesis screening BI Accession Number(s): [id number] cc: Agnes Kan MD EXAMINATION: MM SCREENING [...] 05/19/24 1504 DD/ 1100 TD/TT: 05/09/24 1117 Internal Controls Analyst: Agnes Maldonado MD IMG BI PROCEDURES Final Result * Hepatitis C Antibody with Reflex to HCV, RNA, Quantitative, Real-Time PCR (04/21/2024 7:53 AM EST) Hepatitis C Antibody Nonreactive Nonreactive [facility] Comment:Antibodies to HCV no t detected; does not exclude early acuteHCV infection. Blood Venous blood specimen / Unknown 04/21/2024 7:53 AM EST 04/21/2024 7:53 AM EST Agnes Maldonado MD LAB BLOOD ORDERAB LES Final Result [facility] [address] [place] [phone] * HIV-1/2 Antigen and Antibodies, Fourth Generation, with Reflexes (04/21/2024 7:53 AM EST) HIV AB/AG Nonreactive Nonreactive [facility] Comment:HIV-1 p24 Ag and/or HIV-1/HIV-2 Ab not detected.A test result that is nonreactive does not exclude thepossibility of exposure to or infection with HIV-1 and/orHIV-2. Nonreactive results in this assay for individualswith prior exposure to HIV-1 and/or HIV-2 may be due toantigen and antibody levels that are below the limit ofdetection of this assay.[employer] HIV Ag/Ab Combo assay result andsupplemental assay results should be interpreted inconjunction with the patient's clinical presentation,history and other laboratory results. If the results areinconsistent with clinical evidence, additional testing issuggested to confirm the result. Blood Venous blood specimen / Unknown 04/21/2024 7:53 AM EST 04/21/2024 7:53 AM EST Agnes Maldonado MD LAB BLOOD ORDERAB LES Final Result Performing Organization Address [facility] Co de Phone Number [facility] [address] [place] [phone] * (ABNORMAL) Lipid Panel, Standard (04/21/2024 7:53 AM EST) Triglycerides 84 <150 mg/dL [facility] Comment:Desirable Triglyceri de: less than 150 mg/dLBorderline High Triglyceride 150-199 mg/dLHigh Triglyceride: 200-499 mg/dLVery High Triglyceride: greater than or equal to 5OO mg/dL Cholesterol 197 <200 mg/dL [facility] Comment:Desirable Cholestero l: less than 200 mg/dLBorderline High Cholesterol: 200-239 mg/dLHigh Cholesterol: greater than 239 mg/dL LDL Cholesterol Calculated 137(H) <100 mg/dL [facility] Comment:Desirable LDL: less than 100 mg/dLNear Optimal/Above Optimal LDL: 110- 129 mg/dLBorderline High LDL: 130-159 mg/dLHigh LDL: 160-189 mg/dLVery High LDL: greater than or equal to 190 mg/dL HDL Cholesterol 44 >40 mg/dL [facility] Comment:Desirable HDL: great er than 40 mg/dL Note: This HDL assay may give artificially low results in patients with liver disease. Blood Venous blood specimen / Unknown 04/21/2024 7:53 AM EST 04/21/2024 7:53 AM EST us Agnes Maldonado MD LAB BLOOD ORDERAB LES Final Result Performing Organization Address [facility]/ZIP Co de Phone Number [facility] [address] [place] [phone] * THINPREP TIS PAP AND HPV mRNA E6/E7, CT/NG, TRICH (07/17/2021 12:00 AM EST) Chlamydia trachomatis RNA, TMA, Urogenital NOT DETECTED NOT DETECTED [facility] Clinical Information: None given [facility] COMMENT SEE COMMENT [facility] Comment: The analytical performance characteristics of this assay, when used to test SurePath(TM) specimens have been determined by [employer]. The modifications have not been cleared or approved by the FDA. This assay has been validated pursuant to the CLIA regulations and is used for clinical purposes. For additional information, please refer to https://education.Gemmyo/faq/XAW773 (This link is being provided for information/ [...] has been evaluated with computer assisted technology. [facility] Automation Engineer: SEE COMMENT [facility] Comment: YP, CT(ASCP) CT screening location: [place] [address] HPV nRNA E6/E7 Not Detected Not Detected [facility] Comment: Methodology: Onsite Case Manager-Mediated Amplification This assay detects E6/E7 viral messenger RNA (mRNA) from 14 high-risk HPV types (16,18,31,33,35,39,45,51,52,56,58,59,66,68). The analytical performance characteristics of this assay have been determined by [employer]. The modifications have not been cleared or approved by the FDA. This assay has been validated pursuant to the CLIA regulations and is used for clinical purposes. For additional information, please refer to http://education.Gemmyo/faq/ERC314l0 (This link if provided for information/ educational purposes only.) Infection Fungal organisms morphologically consistent with Maryjane spp. [facility] Interpretation/Re sult: Negative for intraepithelial lesion or malignancy. [facility] LMP: NONE GIVEN [facility]OUND[facility] N [...] of this assay have been determined by [employer]. The modifications have not been cleared or approved by the FDA. This assay has been validated pursuant to the CLIA regulations and is used for clinical purposes. For additional information, please refer to http://education.Gemmyo/ faq/Trichomonastma (This link is being provided for information/ educational purposes only.) 07/17/2021 us Caryl Everett NP LAB PATHOLOGY ORDERABLES Final Result Performing Organization Address City/State/[facility] Co de Phone Number [facility] [address] from Last 3 Months or Most Recently Relevant to Health Maintenance Insurance [facility] C3 DENTAL-[facility] MEDICAID STAND ADULT Care Teams Senior Advisory Relationship Specialty Start Date End Date Agnes Kan MD [address] [place] [address] [place] [address] PCP - General Internal Medicine 01/05/23
--- OUTSIDE RECORDS SUMMARY | 2025-05-18 07:40 | XMS_ITS | Encounter Summary ---
Author Organization [employer] Address [address] [place] [address] 7 [place] [address] Care Team Providers Care Low Altitude Air Defense Officer Name Role Phone Agnes Kan MD Primary Care Pro vider Reason for Visit * Reason Onset Date Comments Med Refill 01/23/2025 Encounter Details Date Type Department Care Team ([facility] st Contact Info) Description 01/23/2025 Refill [facility] MEDICINE [address] [place] [address] Jackie Dent MD 230 [place] [address] Social History Tobacco Use Types Packs/Day Years [...] Description 07/17/2025 10:00 AM EST Office Visit [facility] MEDICINE [address] [place] [address] Agnes Kan MD 230 [place] [address] 09/11/2025 9:30 AM EDT Office Visit [facility] ADULT DENTAL [address] [place] [address] Regine, Valentine [address] [place] [address] documented as of this encounter Visit Diagnoses Not on filedocumented in this encounter Additional Health Concerns Assessment Noted Time PHQ-9 Depression Total Score: 0 03/08/20 11:39 AM EDT documented as of this encounter Care Teams Low Altitude Air Defense Officer Relationship Specialty Start Date End Date Agnes Kan MD [address] [place] [phone] PCP - General Internal Medicine 01/05/23 documented as of this encounter
--- OUTSIDE RECORDS SUMMARY | 2025-05-18 07:40 | XMS_ITS | Encounter Summary ---
Author Organization [employer] Address [address] [facility] 7t [place] [address] Care Team Providers Care Bridge Worker Apprentice Name Role Phone Agnes Kan MD Primary Care Pro vider Reason for Visit * Reason Comments Med Refill Encounter Details Date Type Department Care Team ([facility] Contact Info) Description 02/27/[address] [facility] MEDICINE [address] [place] [address] [facility] [address] [place] [address] Pain Social History Tobacco Use Types Packs/Day [...] 10:00 AM EST Office Visit [facility] MEDICINE [address] [place] [address] Agnes Kan MD [address] [place] [phone] 09/11/2025 9:30 AM EDT Office Visit [facility] ADULT DENTAL [address] [place] [address] Regine, Valentine [address] [place] [address] documented as of this encounter Visit Diagnoses Diagnosis Pain Generalized pain documented in this encounter Additional Health Concerns Assessment Noted Time PHQ-9 Depression Total Score: 0 02/04/20 10:58 AM EDT documented as of this encounter Care Teams Bridge Worker Apprentice Relationship Specialty Start Date End Date Agnes Kan MD [address] [place] [phone] PCP - General Internal Medicine 01/05/23 documented as of this encounter
--- OUTSIDE RECORDS SUMMARY | 2025-05-18 07:40 | XMS_ITS | Encounter Summary ---
Author Organization [email or web address] Address [address] [place] [address] 7 [place] [address] Care Team Providers Care [employer] Innovation Partnerships Name Role Phone Agnes Kan MD Primary Care Pro vider Reason for Visit * Reason Onset Date Comments Med Refill 01/23/2025 Encounter Details Date Type Department Care Team ([facility] st Contact Info) Description 01/23/2025 Refill [facility] MEDICINE 230 [place] [address] Jackie Dent MD [address] [place] [address] Social History Tobacco Use Types Packs/Day Years [...] Description 07/17/2025 10:00 AM EST Office Visit [facility] MEDICINE [address] [place] [address] Agnes Kan MD 230 [place] [address] 09/11/2025 9:30 AM EDT Office Visit [facility] ADULT DENTAL [address] [place] [address] Regine, Valentine [address] [place] [address] documented as of this encounter Visit Diagnoses Not on filedocumented in this encounter Additional Health Concerns Assessment Noted Time PHQ-9 Depression Total Score: 0 03/08/20 11:39 AM EDT documented as of this encounter Care Teams [employer] Partnerships Relationship Specialty Start Date End Date Agnes Kan MD [address] [place] [phone] PCP - General Internal Medicine 01/05/23 documented as of this encounter
== END 2025-05-18 07:39 | disposition home or self-care (01) ==
LOC: HO.US 07:38
PROVIDERS: PCP Student in an Organized Health Care Education/Training Program; Visit Provider Internal Medicine Gastroenterology
DX: E66.9 Obesity, unspecified (principal); Z68.39 Body mass index [BMI] 39.0-39.9, adult
CPT/HCPCS: 76705; 76981

== ENCOUNTER → 2025-05-18 07:40 | Outpatient (BNV) | payer MEDICAID, SELFPAY | PROVIDERS: PCP Student in an Organized Health Care Education/Training Program; Visit Provider Radiology Diagnostic Radiology | DX: E66.9 Obesity, unspecified (principal) | CPT/HCPCS: 76705 ==

== ENCOUNTER 2025-05-21 12:25 | Outpatient (REF) | payer MEDICAID, SELFPAY ==
--- OUTSIDE RECORDS SUMMARY | 2025-05-21 14:23 | XMS_ITS | Clinical Summary ---
Author Organization [employer] Address [address] [facility] [address] [place] [address] Care Team Providers Care Plate Driller Name Role Phone Agnes Kan MD Primary [...] Type Department Care Team Description 05/08/2025 Telephone [facility] [address] [place] [address] Agnes Kan MD BP log faxed 05/01/2025 Telephone [facility] [address] [place] [address] Agnes Kan MD Prior Authorization 05/01/2025 Orders Only [facility] [address] [place] [address] Agnes Kan MD 04/21/2025 Refill [facility] [address] [place] [address] Agnes Kan MD 04/20/2025 Refill [facility] [address] [place] [address], [place] [address] Agnes Kan MD 04/18/2025 8:00 AM EST Office Visit [facility] [address] [facility] [place] [address] J Carlos Cabrera DDS Dental caries (Primary Dx) 04/17/2025 10:45 AM EST Office Visit [address] [address] Agnes Kan MD Annual physical exam (Primary Dx); Hyperlipidemia, unspecified hyperlipidemia type; Hypertension, unspecified type; Class 2 obesity due to excess calories without serious comorbidity with body mass index (BMI) of 39.0 to 39.9 in adult; Health care maintenance; Other migraine without status migrainosus, not intractable 04/17/2025 Travel 04/16/[address] [address] Agnes Kan MD chart prep 04/11/2025 Travel 04/10/2025 Travel 04/09/2025 Patient Outreach [address] [address] Agnes Kan MD Pre-visit Planning (SDOH screening was completed on 10/10/2024) 03/05/2025 1:30 PM EDT Office Visit [facility] [address] [facility] [place] [address] J Carlos Cabrera DDS Dental caries (Primary Dx) 03/02/2025 10:15 AM EDT Office Visit [facility] [address] [place] [address] Valentine Weiner Dental calculus (Primary Dx); Localized [...] Description 07/17/2025 10:00 AM EST Office Visit [facility] [address] [place] [address] Agnes Kan MD [address] [place] [address] 09/11/2025 9:30 AM EDT Office Visit [facility] [address] [place] [address] RegineValentine [address] [place] [address] Health Maintenance Due Date Last Done Comments [...] Procedure Name Priority Date/Time Associated Diagnosis Comments US ABDOMEN INFANTE W ELASTOGRAPHY Routine 05/18/2025 7:58 AM EST CASE PRESENTATION, DETAILED AND EXTENSIVE [...] Recently Relevant to Health Maintenance Results * US ABDOMEN INFANTE W ELASTOGRAPHY (05/18/2025 7:58 AM EST) Anatomical Region Laterality Modality Abdomen Ultrasound 05/18/2025 7:58 AM EST Narrative 05/18/2025 8:29 AM EST [place] [address] Ultrasound Report Signed Patient: Valentine Victoria MR#: [id number] : 1980 Acct:[id number] Age/Sex: 44 / F ADM Date: 05/18/25 Loc: HO.US Attending Dr: Alexis Lowe MD Ordering Physician: Alexis Lowe MD Date of Service: 05/18/25 Procedure(s): US abdomen infante w elastography Accession Number(s): [id number] cc: Alexis Lowe MD; Agnes Kan MD Reason for Exam: E66.9 - Obesity, unspecified EXAMINATION: US ABDOMEN LIMITED WITH LIVER ELASTOGRAPHY HISTORY: E66.9 - Obesity, unspecified TECHNIQUE: Real-time grayscale ultrasound imaging of the right upper quadrant was performed and images were reviewed. COMPARISON: Comparison is made with the prior examination dated 01/02/2019. FINDINGS: Liver: The right lobe of the liver measures 15.2 cm in size. The left lobe of the liver measures 9.2 cm in size. The liver demonstrates normal homogeneous echotexture. No focal mass or intrahepatic biliary ductal dilatation is identified. There is normal hepatopedal flow in the portal vein. Ultrasound elastography of the liver was performed with 10 separate measurements of the liver parenchyma with the patient in the supine position. Measurements were obtained approximately 2 cm below Vladimir's capsule and perpendicular to the capsule. The median shear wave velocity is 1.57 m/s. The interquartile range/median (IQR/median) is 0.06. Gallbladder and biliary tree: The gallbladder is unremarkable, without evidence of calculi, wall thickening, or pericholecystic fluid. There is no sonographic Bolton sign. The common bile duct is normal in caliber measuring 3 mm in diameter. Right Kidney: The right kidney measures 10.2 cm in length. The right kidney is unremarkable, without evidence of masses, hydronephrosis, or calculi. Pancreas: The pancreatic head, neck, and body are unremarkable. The pancreatic tail is obscured by bowel gas. Abdominal aorta and inferior vena cava: The visualized portions of the abdominal aorta and inferior vena cava are normal in caliber. There is no free fluid in the right upper quadrant. US/US abdomen infante w elastography IMPRESSION: Unremarkable right upper quadrant ultrasound. The median shear wave velocity in the liver is 1.57 m/s, corresponding to a median liver stiffness of 7.28 kPa. The IQR/median value is 0.06. This is indicative of a quality data set. Findings are indicative of a low elastography value which rules out advanced chronic liver disease in asymptomatic patients. REFERENCE: Society of Radiologists in Ultrasound Liver Stiffness Thresholds (2020): LIVER STIFFNESS THRESHOLDS: *Shear wave velocity less than 1.3 m/s (Liver Stiffness equal or less than 5 kPa): High probability of being normal. *Shear wave velocity less than 1.7 m/s (Liver Stiffness less than 9 kPa): In the absence of other known clinical signs, rules out compensated advanced chronic liver disease. *Shear wave velocity between 1.7-2.1 m/s (Liver Stiffness 9-13 kPa): Suggestive of compensated advanced chronic liver disease but need further test for confirmation. *Shear wave velocity between 2.1-2.4 m/s (Liver Stiffness 13-17 kPa): Rules in compensated advanced chronic liver disease. *Shear wave velocity greater than 2.4 m/s (Liver Stiffness over 17 kPa): Suggestive of clinically significant portal hypertension. QUALITY OF DATA SET: *IQR/Median value equal or less than 0.15 implies a quality data set. *IQR/Median value over 0.15 implies a poor quality data set. SIGNIFICANT CHANGE FROM PRIOR EXAM: Significant change if liver stiffness measurement is 10% or greater from prior exam. OTHER CONSIDERATIONS: The stage of liver fibrosis may be overestimated in the setting of acute hepatitis, liver inflammation, elevated liver function tests, hepatic vascular congestion, obstructive cholestasis, non-fasting state, and infiltrative diseases such as amyloidosis and lymphoma. In some patients with NAFLD, the liver stiffness thresholds for compensated advanced chronic liver disease may be lower. In causes other than viral hepatitis and NAFLD, liver stiffness thresholds are not well established. Electronically signed by: Bright Live MD 05/18/2025 08:25 AM EST Dictated By: Bright Live MD Signed By: <Electronically signed by Bright Live MD in [place]> 05/18/2525 DD/ 0758 TD/TT: 05/18/25 0805 Lead Relay Tester: Procedure Note Donotuseinterpreter, Image - 05/18/2025 [place] [address] Ultrasound Report Signed Patient: Valentine Victoria#: M [id number] : 1980Acct:[id number] Age/Sex: 44 / FADM Date: 05/18/25 Loc: HO.US Attending Dr: Alexis Lowe MD Ordering Physician: Alexis Lowe MD Date of Service: 05/18/25 Procedure(s): US abdomen infante w elastography Accession Number(s): [id number] cc: Alexis Lowe MD; Agnes Kan MD Reason for Exam: E66.9 - Obesity, unspecified EXAMINATION: US ABDOMEN LIMITED WITH LIVER ELASTOGRAPHY HISTORY: E66.9 - Obesity, unspecified TECHNIQUE: Real-time grayscale ultrasound imaging of the right upper quadrant was performed and images were reviewed. COMPARISON: Comparison is made with the prior examination dated 01/02/2019. FINDINGS: Liver: The right lobe of the liver measures 15.2 cm in size. The left lobe of the liver measures 9.2 cm in size. The liver demonstrates normal homogeneous echotexture. No focal mass or intrahepatic biliary ductal dilatation is identified. There is normal hepatopedal flow in the portal vein. Ultrasound elastography of the liver was performed with 10 separate measurements of the liver parenchyma with the patient in the supine position. Measurements were obtained approximately 2 cm below Vladimir's capsule and perpendicular to the capsule. The median shear wave velocity is 1.57 m/s. The interquartile range/median (IQR/median) is 0.06. Gallbladder and biliary tree: The gallbladder is unremarkable, without evidence of calculi, wall thickening, or pericholecystic fluid. There is no sonographic Bolton sign. The common bile duct is normal in caliber measuring 3 mm in diameter. Right Kidney: The right kidney measures 10.2 cm in length. The right kidney is unremarkable, without evidence of masses, hydronephrosis, or calculi. Pancreas: The pancreatic head, neck, and body are unremarkable. The pancreatic tail is obscured by bowel gas. Abdominal aorta and inferior vena cava: The visualized portions of the abdominal aorta and inferior vena cava are normal in caliber. There is no free fluid in the right upper quadrant. US/US abdomen infante w elastography IMPRESSION: Unremarkable right upper quadrant ultrasound. The median shear wave velocity in the liver is 1.57 m/s, corresponding to a median liver stiffness of 7.28 kPa. The IQR/median value is 0.06. This is indicative of a quality data set. Findings are indicative of a low elastography value which rules out advanced chronic liver disease in asymptomatic patients. REFERENCE: Society of Radiologists in Ultrasound Liver Stiffness Thresholds (2020): LIVER STIFFNESS THRESHOLDS: *Shear wave velocity less than 1.3 m/s (Liver Stiffness equal or less than 5 kPa): High probability of being normal. *Shear wave velocity less than 1.7 m/s (Liver Stiffness less than 9 kPa): In the absence of other known clinical signs, rules out compensated advanced chronic liver disease. *Shear wave velocity between 1.7-2.1 m/s (Liver Stiffness 9-13 kPa): Suggestive of compensated advanced chronic liver disease but need further test for confirmation. *Shear wave velocity between 2.1-2.4 m/s (Liver Stiffness 13-17 kPa): Rules in compensated advanced chronic liver disease. *Shear wave velocity greater than 2.4 m/s (Liver Stiffness over 17 kPa): Suggestive of clinically significant portal hypertension. QUALITY OF DATA SET: *IQR/Median value equal or less than 0.15 implies a quality data set. *IQR/Median value over 0.15 implies a poor quality data set. SIGNIFICANT CHANGE FROM PRIOR EXAM: Significant change if liver stiffness measurement is 10% or greater from prior exam. OTHER CONSIDERATIONS: The stage of liver fibrosis may be overestimated in the setting of acute hepatitis, liver inflammation, elevated liver function tests, hepatic vascular congestion, obstructive cholestasis, non-fasting state, and infiltrative diseases such as amyloidosis and lymphoma. In some patients with NAFLD, the liver stiffness thresholds for compensated advanced chronic liver disease may be lower. In causes other than viral hepatitis and NAFLD, liver stiffness thresholds are not well established. Electronically signed by: Bright Live MD 05/18/2025 08:25 AM EST Dictated By: Bright Live MD Signed By: <Electronically signed by Bright Live MD in OV> 05/18/25 0825 DD/ 0758 TD/TT: 05/18/25 08 Lead Relay Tester: us [facility] External Provider IMG US PROCEDURES Edited Result - Final * BI Mammogram Screening Tomosynthesis Bilateral (05/09/2024 11:00 AM EST) Anatomical Region Laterality Modality Breast Bilateral Mammography 05/09/2024 11:0 0 AM EST Narrative 05/19/2024 3:07 PM EST [facility] [address] [place] [address] Mammography Report Signed Patient: Valentine Victoria MR#: M [id number] : 1980 Acct:[id number] Age/Sex: 43 / F ADM Date: 05/09/24 Loc: CHIKA Attending Dr: Agnes Maldonado MD Ordering Physician: Agnes Kan MD Re sults: 1Negative Date of Service: 05/09/24 Follow Up: 1 Year From Orig inal Mammogram Procedure(s): MM tomosynthesis screening BI Accession Number(s): [id number] cc: Agnes Kan MD EXAMINATION: MM SCREENING [...] by: Ria Watson DO 05/19/2024 03:04 PM [facility] Dictated By: Ria Watson DO Signed By: <Electronically signed by Ria Watson DO in OV> 05/19/24 1504 DD/ 1100 TD/TT: 05/09/24 1117 Lead Relay Tester: Procedure Note Donotuseinterpreter, Image - 05/19/2024 [facility] [address] [place], [place] [address] Mammography Report Signed Patient: Valentine VictoriaMR#: M [id number] : 1980Acct:[id number] Age/Sex: 43 / FADM Date: 05/09/24 Loc: HO.MAMMO Attending Dr: Agnes Maldonado MD Ordering Physician: Agnes Kan sults: 1Negative Date of Service: 05/09/24Follow Up: 1 Year From Orig inal Mammogram Procedure(s): MM tomosynthesis screening BI Accession Number(s): [id number] cc: Agnes Kan MD EXAMINATION: MM SCREENING [...] 05/19/24 1504 DD/ 1100 TD/TT: 05/09/24 1117 Lead Relay Tester: us Agnes Maldonado MD IMG BI PROCEDURES Final Result * Hepatitis C Antibody with Reflex to HCV, RNA, Quantitative, Real-Time PCR (04/21/2024 7:53 AM EST) Pathologist [facility] Hepatitis C Antibody Nonreactive Nonreactive [facility] Comment:Antibodies to HCV no t detected; does not exclude early acuteHCV infection. Blood Venous blood specimen / Unknown 04/21/2024 7:53 AM EST 04/21/2024 7:53 AM EST Agnes Maldonado MD LAB BLOOD ORDERAB LES Final Result [facility] [address] [place] [phone] * HIV-1/2 Antigen and Antibodies, Fourth Generation, with Reflexes (04/21/2024 7:53 AM EST) HIV AB/AG Nonreactive Nonreactive [facility] Comment:HIV-1 p24 Ag and/or HIV-1/HIV-2 Ab not detected.A test result that is nonreactive does not exclude thepossibility of exposure to or infection with HIV-1 and/orHIV-2. Nonreactive results in this assay for individualswith prior exposure to HIV-1 and/or HIV-2 may be due toantigen and antibody levels that are below the limit ofdetection of this assay.The [employer] HIV Ag/Ab Combo assay result andsupplemental assay results should be interpreted inconjunction with the patient's clinical presentation,history and other laboratory results. If the results areinconsistent with clinical evidence, additional testing issuggested to confirm the result. Blood Venous blood specimen / Unknown 04/21/2024 7:53 AM EST 04/21/2024 7:53 AM EST us Agnes Maldonado MD LAB BLOOD ORDERAB LES Final Result [facility] [address] [place] [phone] * (ABNORMAL) Lipid Panel, Standard (04/21/2024 7:53 AM EST) Triglycerides 84 <150 mg/dL [facility] Comment:Desirable Triglyceri de: less than 150 mg/dLBorderline High Triglyceride 150-199 mg/dLHigh Triglyceride: 200-499 mg/dLVery High Triglyceride: greater than or equal to 5OO mg/dL Cholesterol 197 <200 mg/dL [facility] Comment:Desirable Cholestero l: less than 200 mg/dLBorderline High Cholesterol: 200-239 mg/dLHigh Cholesterol: greater than 239 mg/dL LDL Cholesterol Calculated 137(H) <100 mg/dL [facility] Comment:Desirable LDL: less than 100 mg/dLNear Optimal/Above Optimal LDL: 110- 129 mg/dLBorderline High LDL: 130-159 mg/dLHigh LDL: 160-189 mg/dLVery High LDL: greater than or equal to 190 mg/dL HDL Cholesterol 44 >40 mg/dL [facility] Comment:Desirable HDL: great er than 40 mg/dL Note: This HDL assay may give artificially low results in patients with liver disease. Blood Venous blood specimen / Unknown 04/21/2024 7:53 AM EST 04/21/2024 7:53 AM EST Agnes Maldonado MD LAB BLOOD ORDERAB LES Final Result [facility] [address] [place] [phone] * THINPREP TIS PAP AND HPV mRNA E6/E7, CT/NG, TRICH (07/17/2021 12:00 AM EST) Chlamydia trachomatis RNA, TMA, Urogenital NOT DETECTED NOT DETECTED [facility] Clinical Information: None given [facility] COMMENT SEE COMMENT [facility] Comment: The analytical performance characteristics of this assay, when used to test SurePath(TM) specimens have been determined by [employer]. The modifications have not been cleared or approved by the FDA. This assay has been validated pursuant to the CLIA regulations and is used for clinical purposes. For additional information, please refer to https://education.RatePoint/faq/EKB017 (This link is being provided for information/ [...] has been evaluated with computer assisted technology. [employer] [facility] Senior Ui Web Developer: SEE COMMENT [facility] Comment: YP, CT(ASCP) CT screening location: [address] [address] HPV nRNA E6/E7 Not Detected Not Detected [facility] Comment: Methodology: Quality System Manager-Mediated Amplification This assay detects E6/E7 viral messenger RNA (mRNA) from 14 high-risk HPV types (16,18,31,33,35,39,45,51,52,56,58,59,66,68). The analytical performance characteristics of this assay have been determined by [employer]. The modifications have not been cleared or approved by the FDA. This assay has been validated pursuant to the CLIA regulations and is used for clinical purposes. For additional information, please refer to http://[employer].RatePoint/faq/EMT807t3 (This link if provided for information/ educational [...] of this assay have been determined by [employer]. The modifications have not been cleared or approved by the FDA. This assay has been validated pursuant to the CLIA regulations and is used for clinical purposes. For additional information, please refer to http://[employer].RatePoint/ faq/Trichomonastma (This link is being provided for information/ educational purposes only.) 07/17/2021 Caryl Everett NP LAB PATHOLOGY ORDERABLES Final Result [facility] [address] from Last 3 Months or Most Recently Relevant to Health Maintenance Insurance [facility] C[place] AD[place] Care Teams Plate Driller Relationship Specialty Start Date End Date Agnes Kan MD [address] [place] [phone] PCP - General Internal Medicine 01/05/23
--- OUTSIDE RECORDS SUMMARY | 2025-05-21 14:23 | XMS_ITS | Encounter Summary ---
Author Organization [facility] Address [address] [place] [address] 7 [place] [address] Care Team Providers Care Production Lead Name Role Phone Agnes Kan MD Primary Care Pro vider Reason for Visit * Reason Onset Date Comments Med Refill 01/23/2025 Encounter Details Date Type Department Care Team ([facility] st Contact Info) Description 01/23/2025 Refill [facility] [address] [place] [address] Jackie Dent MD [address] [place] [address] Social History Tobacco Use Types Packs/Day Years [...] Description 07/17/2025 10:00 AM EST Office Visit [facility] [address] [place] [address] Agnes Kan MD [address] [place] [address] 09/11/2025 9:30 AM EDT Office Visit [facility] ADULT [facility] [address] [place] [address] Regine, Valentine [address] [place] [address] documented as of this encounter Visit Diagnoses Not on filedocumented in this encounter Additional Health Concerns Assessment Noted Time PHQ-9 Depression Total Score: 0 03/08/20 11:39 AM EDT documented as of this encounter Care Teams Production Lead Relationship Specialty Start Date End Date Agnes Kan MD [address] [place] [phone] PCP - General Internal Medicine 01/05/23 documented as of this encounter
--- OUTSIDE RECORDS SUMMARY | 2025-05-21 14:23 | XMS_ITS | Encounter Summary ---
Author Organization [employer] Address [address] [facility] [address] [place] [address] Care Team Providers Care Snow Groomer Name Role Phone Agnes Kan MD Primary Care Pro vider Reason for Visit * Reason Comments Med Refill Encounter Details Date Type Department Care Team ([facility] Contact Info) Description 02/27/2023 Refill [facility] [address] [place] [address] [facility] [address] [place] [address] Pain Social History Tobacco Use Types Packs/Day [...] Description 07/17/2025 10:00 AM EST Office Visit [facility] [address] [place] [address] Agnes Kan MD [address] [place] [id number] 09/11/2025 9:30 AM EDT Office Visit [facility] [address] [place] [address] Regine, Valentine [address] [place] [address] documented as of this encounter Visit Diagnoses Diagnosis Pain Generalized pain documented in this encounter Additional Health Concerns Assessment Noted Time PHQ-9 Depression Total Score: 0 02/04/20 10:58 AM EDT documented as of this encounter Care Teams Snow Groomer Relationship Specialty Start Date End Date Agnes Kan MD [address] [place] [id number] PCP - General Internal Medicine 01/05/23 documented as of this encounter
--- OUTSIDE RECORDS SUMMARY | 2025-05-21 14:23 | XMS_ITS | Encounter Summary ---
Author Organization [employer] Address [address] [place] [address] [address] [place] [address] Care Team Providers Care Service Advocate Contact Name Role Phone Agnes Kan MD Primary Care Pro vider Reason for Visit * Reason Onset Date Comments Med Refill 01/23/2025 Encounter Details Date Type Department Care Team ([facility] st Contact Info) Description 01/23/2025 Refill [facility] [address] [place] [phone] Jackie Dent MD [address] [place] [address] Social History Tobacco Use Types Packs/Day Years [...] Description 07/17/2025 10:00 AM EST Office Visit [facility] [address] [place] [address] Agnes Kan MD [address] [place] [address] 09/11/2025 9:30 AM EDT Office Visit [facility] [address] [place] [address] Regine, Valentine [address] [place] [address] documented as of this encounter Visit Diagnoses Not on filedocumented in this encounter Additional Health Concerns Assessment Noted Time PHQ-9 Depression Total Score: 0 03/08/20 11:39 AM EDT documented as of this encounter Care Teams Service Advocate Contact Relationship Specialty Start Date End Date Agnes Kan MD [address] [place] [phone] PCP - General Internal Medicine 01/05/23 documented as of this encounter
== END 2025-05-21 12:26 ==
LOC: HO.MAMMO 12:25
PROVIDERS: PCP Student in an Organized Health Care Education/Training Program; Visit Provider Student in an Organized Health Care Education/Training Program
DX: Z12.31 Encounter for screening mammogram for malignant neoplasm of breast (principal)
CPT/HCPCS: 77063; 77067

== ENCOUNTER → 2025-05-21 12:45 | Outpatient (BNV) | payer MEDICAID, SELFPAY | PROVIDERS: PCP Student in an Organized Health Care Education/Training Program; Visit Provider Internal Medicine | DX: Z12.31 Encounter for screening mammogram for malignant neoplasm of breast (principal) | CPT/HCPCS: 77063; 77067 ==